=== PATIENT | male | born 1985 | race Caucasian/White ===

== ENCOUNTER 2019-09-27 05:20 | Inpatient (IN) | payer MEDICAID ==
[~2019-09-27] VITALS: Ht 167.6 cm; Wt 72.6 kg
[2019-09-27 05:27] VITALS: BP 141/81
[2019-09-27] MEDS ORDERED: NACL 0.9% 1,000 ML IV ONE (05:37)
[2019-09-27] MEDS ORDERED: ONDANSETRON 4 MG/2 ML VIAL IVP ONE (05:40)
[2019-09-27] MEDS ORDERED: KETOROLAC 30 MG/ML VIAL IVP ONE (05:40)
[2019-09-27] MEDS ORDERED: MORPHINE SULFATE 2 MG/ML SYR IVP ONE (05:45)
--- NOTE | 2019-09-27 05:45 | NUR ---
34 Y/O M BIBA C/O RT LOWER ABDOMINAL PAIN 04/05 X 0400. PER PT, PAIN STARTED SUDDENLY. PT DENIES RECENT INJURY/TRAUMA. ABD IS TENDER, AND GUARDING. PT DENIES PAINFUL URINATION, AND N/V/D. PMH: DENIES ALLERGIES: PCN
--- NOTE | 2019-09-27 06:00 | NUR ---
VERBAL ORDER RECEIVED BY DR. PECK FOR NS IVF TO BE RUN WIDE OPEN INSTEAD OF 100 CC/HR.
[2019-09-27 06:04] LABS: BASOPHILS # (AUTO) 0.1 K/uL (0.00-0.22); BASOPHILS % (AUTO) 0.6 % (0.0-2.0); EOSINOPHILS # (AUTO) 0.1 K/uL (0-0.4); EOSINOPHILS % (AUTO) 0.8 % (0.0-4.0); HEMATOCRIT 40.5 % (36-52); LYMPHOCYTES # (AUTO) 1.6 K/uL (2.0-11.5); LYMPHOCYTES % (AUTO) 15.4 % (20.5-51.1); MEAN CORPUSCULAR HEMOGLOBIN 24 pg (27-31); MEAN CORPUSCULAR HGB CONC 32 g/dL (33-37); MEAN CORPUSCULAR VOLUME 73.4 fL (80-94); MONOCYTES # (AUTO) 0.5 K/uL (0.8-1.0); MONOCYTES % (AUTO) 4.3 % (1.7-9.3); NEUTROPHILS # (AUTO) 8.4 K/uL (1.8-7.7); NEUTROPHILS % (AUTO) 78.9 % (42.2-75.2); PLATELET COUNT (AUTO) 213 K/uL (140-450); RED BLOOD CELL COUNT(AUTO) 5.52 MIL/uL (4.20-6.10); RED CELL DISTRIBUTION WIDTH 14.8 % (11.6-13.7); WHITE BLOOD COUNT (AUTO) 10.7 K/uL (4.8-10.8)
--- NOTE | 2019-09-27 06:05 | NUR ---
PT TRANSPORTED TO [facility]IA [facility].
[2019-09-27 06:17] LABS: ALBUMIN 3.6 g/dL (3.4-5.0); ANION GAP 16.3 (8-16); CARBON DIOXIDE 26.5 mmol/L (21-32); POTASSIUM 3.8 mmol/L (3.5-5.1); TOTAL BILIRUBIN 0.6 mg/dL (0.0-1.0)
--- NOTE | 2019-09-27 06:22 | NUR ---
PT BACK FROM [facility] VIA [facility].
--- NOTE | 2019-09-27 06:34 | NUR ---
PT STATES RT LOWER ABD PAIN HAS DECREASED TO 6/10
[2019-09-27 06:42] LABS: PROTHROMBIN TIME 9.6 secs (10.8-13.4)
--- NOTE | 2019-09-27 06:46 | NUR ---
URINE COLLECTED AND WALKED OVER TO LAB.
--- NOTE | 2019-09-27 07:19 | NUR ---
REPORT GIVEN TO AUBREY ROUSSEAU FOR CONTINUITY OF CARE.
--- NOTE | 2019-09-27 07:23 | NUR ---
RECEIVED REPORT FROM AUBREY PRABHAKAR.PT IN BED SITTING COMFORTABLY , AWAKE ,ALERT, AFIBRILE ,STABLE V/S.
[2019-09-27 07:24] LABS: BARBITURATE, URINE NEGATIVE ng/ml (NEG <=200); BENZODIAZEPINE, URINE NEGATIVE ng/mL (NEG <=200); CANNABINOID, URINE NEGATIVE ng/mL (NEG <=50); COCAINE, URINE NEGATIVE ng/mL (NEG <=300); OPIATE, URINE POSITIVE ng/mL (NEG <=2000); PHENCYCLIDINE SCREEN,URINE NEGATIVE ng/mL (NEG <=25)
[2019-09-27 07:28] LABS: ACETAMINOPHEN < 0.5 ug/ml (10-30); SALICYLATE < 2.8 mg/dL (2.8-20.0)
--- NOTE | 2019-09-27 08:01 | NUR ---
DR PELAEZ AT BEDSIDE REEVALUATING PT.
[2019-09-27] MEDS ORDERED: NACL 0.9% 1,000 ML IV SCH (08:07)
[2019-09-27] MEDS ORDERED: DOCUSATE SODIUM 100 MG GELCAP PO PRN (08:10)
[2019-09-27] MEDS ORDERED: MORPHINE SULFATE 2 MG/ML SYR IVP PRN ×3 (08:10→15:00)
[2019-09-27] MEDS ORDERED: ONDANSETRON 4 MG/2 ML VIAL IM/IVP PRN (08:10)
[2019-09-27] MEDS ORDERED: cefTRIAXone 2,000 MG in DEXTROSE 5% 100 ML IV SCH (08:20)
[2019-09-27 08:32] VITALS: BP 125/83
--- NOTE | 2019-09-27 08:32 | NUR ---
Patient will be admitted to care of DR CROCKER. Admited to med surg. Will go to room 106 a. Belongings list completed. Report to alfa vigil.
--- NOTE | 2019-09-27 08:32 | NUR ---
RECEIVED BEDSIDE REPORT FROM ED NURSE. PT RESTING IN BED. ABLE TO MAKE NEEDS KNOWN. RESPIRATIONS EVEN AND UNLABORED WITH NO SOB OR RESPIRATORY DISTRESS. SKIN WARM AND DRY TO TOUCH. IV SITE IN LAC 18G IS CLEAN, DRY, AND INTACT. MRSA SWAB COLLECTED. VITAL SIGNS: 125/83 BP, HR 76, 17 RR, 98% SPO2 ON RA, AND 97.7 IS TEMP. SAFETY MEASURES IN PLACE. WILL CONTINUE TO MONITOR.
[2019-09-27] MEDS ORDERED: LEVOFLOXACIN 750 MG/D5W PREMIX 150 ML IV ONE (08:50)
--- NOTE | 2019-09-27 08:50 | NUR ---
dr chacon notified pt is already in the floor when he ordered meds. Jolene vigil informed and aware.
[2019-09-27 08:51] LABS: FREE T4 (FREE THYROXINE) 1.01 ng/dL (0.76-1.46); MAGNESIUM 2.1 mg/dL (1.8-2.4); PHOSPHORUS 3.5 mg/dL (2.5-4.9); THYROID STIMULATING HORMONE 1.06 uIU/mL (0.34-3.74)
[2019-09-27] MEDS ORDERED: LORazepam 2 MG/ML VIAL IVP PRN (09:00)
[2019-09-27] MEDS ORDERED: LORazepam 1 MG TAB PO PRN (09:00)
--- NOTE | 2019-09-27 09:10 | NUR ---
INSTRUCTED PATIENT ON INCENTIVE SPIROMETER. PT UNDERSTANDS EXERCISE. INSTRUCTED PATIENT ON SPUTUM CULTURE, SPUTUM CUP LEFT AT BEDSIDE.
[2019-09-27] MEDS ORDERED: DEXT 5% /NACL 0.9% 1,000 ML IV SCH (09:20)
[2019-09-27] MEDS ORDERED: ALBUTEROL HFA MDI 90 MCG/ACTUATION 8 GM INH PRN (10:00)
[2019-09-27] MEDS: FOLIC ACID 1 MG TAB PO SCH (10:10)
[2019-09-27] MEDS: MULTIVITAMIN 1 TAB PO SCH (10:10)
[2019-09-27] MEDS: THIAMINE 100 MG TAB PO SCH (10:10)
[2019-09-27] MEDS: PANTOPRAZOLE 40 MG INJ VIAL IVP SCH (10:29)
--- NOTE | 2019-09-27 10:29 | NUR ---
ADMINISTERED SCHED MED PRESCRIBED PER MD ORDER. PT TOLERATED WELL. MEDICATION EDUCATION PERFORMED. PT VERBALIZED UNDERSTANDING. SAFETY MEASURES IN PLACE. WILL CONTINUE TO MONITOR
--- NOTE | 2019-09-27 11:41 | NUR ---
DC PLANNIN YRS OLD MALE PATIENT WAS ADMITTED FROM HOME WITH A DX OF PARTIAL BOWEL OBSTRUCTION. PT HAS NO MEDICAL HISTORY. CT ABDOMEN SHOWED A SINGLE PROMINENT SMALL BOWEL LOOP IN THE LEFT UPPER QUADRANT WITH AN AIR FLUID , MULTIPLE SMALL HEPATIC HYPERDENSITIES , SMALL RIGHT PLEURAL EFFUSION RT BIBASILAR CONSOLIDATION AND ATELECTASIS. NGT INSERTED ,ADMINISTERED IVF, IV ZOSYN . BLOOD AND SPUTUM CULTURE PENDING. SURGICAL CONSULT WITH DR CARRASQUILLO. DC PLAN TO GO HOME WHEN STABLE. CM TO FOLLOW. Addendum: 09/29/19 at 1635 by Yani Hayden CM DC PLANNING: SEEN BY PULMO DR OG RECOMMENDED PERSISTENT FEVER DUE TO PNA AND CONTINUE IV ABX ZOSYN . DR CARRASQUILLO SURGEON RECOMMENDATION WERE NO EVIDENCED OF SURGICAL NEEDS AT THIS TIME AND ADVANCED TO LIQUID DIET. DC PLAN TO GO HOME WHEN STABLE. CM TO FOLLOW
[2019-09-27] MEDS: NACL 0.9% 1,000 ML IV SCH ×2 (12:56→23:27)
[2019-09-27] MEDS: PIPERACILLIN/TAZOBACTAM 3.375 GM in DEXTROSE 5% 50 ML IV SCH ×3 (12:58→23:27)
--- NOTE | 2019-09-27 13:05 | NUR ---
ADMINISTERED SCHED MED PRESCRIBED PER MD ORDER. PT TOLERATED WELL. MEDICATION EDUCATION PERFORMED. PT VERBALIZED UNDERSTANDING. SAFETY MEASURES IN PLACE. WILL CONTINUE TO MONITOR
[2019-09-27] MEDS: ACETAMINOPHEN 325 MG TAB PO PRN (14:56)
--- NOTE | 2019-09-27 14:56 | NUR ---
PATIENT COMPLAINED OF PAIN AND FEELING COLD. UPON ASSESSING, PT HAS FEVER OF 101.9 TAKEN TEMPORALLY. WHEN TEMP TAKEN ORALLY, PT HAS A TEMP OF 102.9. PRN TYLENOL ADMINISTERED PRESCRIBED PER MD ORDER. RESIDENT AND CHARGE AWARE. SAFETY MEASURES IN PLACE. WILL CONTINUE TO MONITOR
[2019-09-27 16:00] VITALS: BP 116/68
--- NOTE | 2019-09-27 16:05 | NUR ---
HOURLY ROUNDING. PT ASLEEP IN BED. RESPONSIVE TO VERBAL AND TACTILE STIMULI. ABLE TO MAKE NEEDS KNOWN. RESPIRATIONS EVEN AND UNLABORED WITH NO SOB OR RESPIRATORY DISTRESS. SKIN WARM AND DRY TO TOUCH. SAFETY MEASURES IN PLACE. WILL CONTINUE TO MONITOR.
--- NOTE | 2019-09-27 18:02 | NUR ---
ADMINISTERED SCHED MED PRESCRIBED PER MD ORDER. PT TOLERATED WELL. MEDICATION EDUCATION PERFORMED. PT VERBALIZED UNDERSTANDING. SAFETY MEASURES IN PLACE. WILL CONTINUE TO MONITOR
--- NOTE | 2019-09-27 19:10 | NUR ---
RECEIVED REPORT FROM ARTI BURGOS DAYSHIFT NURSE AT BEDSIDE FOR CONTINUITY OF CARE, PT IN STABLE CONDITION.
--- NOTE | 2019-09-27 19:10 | NUR ---
ENDORSED AT BEDSIDE TO NIGHTSHIFT NURSE. PT IS STABLE
--- NOTE | 2019-09-27 20:30 | NUR ---
PT IN BED AOX4 PRIMARY SERBIAN SPEAKING WITH LAC 18G INTACT AND ASYMPTOMATIC. PT RUNNING NORMAL SALINE AT 100MLS/HR. [employer] BUS OPERATOR SYSTEM USED TO TRANSLATE WITH MOVIE STUNT PERFORMER JENNIFERL . TEACHING PROVIDED REGARDING PT DIAGNOSIS WELL TRANSLATING PT MEDICATIONS AND SIDE EFFECTS. PT ALSO EDUCATED AND ENCOURAGED USE OF INCENTIVE SPIROMETER. LUNG SOUNDS DIMINISHED. THROUGH MOVIE STUNT PERFORMER PT SAID HE HAD 7/10 STABBING SEVERE PAIN IN ABDOMEN.PT WAS GIVEN MORPHINE IVP AND ASSISTED TO TOILET AND BACK. ALL UNIVERSAL PRECAUTIONS IN PLACE AND V/S FOLLOWS: T 99.7 P 99 R 18 B/P 141/85 02 94% ON ROOM AIR.
--- NOTE | 2019-09-27 22:00 | NUR ---
SISTER BERYL CALLED , PT GAVE VERBAL CONSENT TO ALLOW SISTER TO KNOW INFORMATION REGARDING HIS MEDICAL ISSUES, PT ALSO SPOKE WITH SISTER DIRECTLY.
[2019-09-27] MEDS: HYDROcodone/APAP 5/325 MG 1 TAB TAB PO PRN (23:33)
--- NOTE | 2019-09-27 23:35 | NUR ---
PT C/O OF MODERATE PAIN AND WAS GIVEN PO NORCO PRN . ALL UNIVERSAL PRECAUTIONS IN PLACE. ALL REQUESTED NEEDS ATTENDED BY STAFF.
[2019-09-28] VITALS: BP 126/71
--- NOTE | 2019-09-28 00:45 | NUR ---
PT GIVEN IVP ZOSYN EDUCATION REGARDING PT MEDICATION EXPLAINED AT BEDSIDE. NO ADVERSE EFFECTS OF IV ABT. V/S FOLLOWS; T 100.4 P 94 R 20 B/P 126/71 02 99% ON ROOM AIR. WILL MEDICATE FOR INCREASED TEMPERATURE. ALL UNIVERSAL PRECAUTIONS IN PLACE.
[2019-09-28] MEDS: ACETAMINOPHEN 325 MG TAB PO PRN (01:15)
--- NOTE | 2019-09-28 01:15 | NUR ---
COOLING MEASURES OF ICE PACKS AND TYLENOL PROVIDED TO PT TO MAKE TEMPERATURE GO DOWN. WILL CONTINUE TO MONITOR PT.
--- NOTE | 2019-09-28 04:00 | NUR ---
URINE COLLECT FOR UA AND SENT TO LAB.
[2019-09-28 04:17] LABS: APPEARANCE,URINE CLEAR (CLEAR); BILIRUBIN,URINE NEGATIVE (NEGATIVE); BLOOD, URINE NEGATIVE (NEGATIVE); COLOR,URINE YELLOW (YELLOW); LEUKOCYTE ESTERASE ,URINE NEGATIVE (NEGATIVE); NITRITE, URINE NEGATIVE (NEGATIVE); PH,URINE 6.5 (5.0-9.0); UGLUCOSE NEGATIVE (NEGATIVE)
[2019-09-28] MEDS: PIPERACILLIN/TAZOBACTAM 3.375 GM in DEXTROSE 5% 50 ML IV SCH ×3 (05:45→18:09)
--- NOTE | 2019-09-28 05:50 | NUR ---
PT GIVEN ORDERED ZOSYN, EDUCATION REGARDING MEDICATION PROVIDED AT BEDSIDE, PT VERBALIZED UNDERSTANDING.
[2019-09-28 06:51] LABS: CHOL/HDL RATIO 2.6 (1-4.5)
--- NOTE | 2019-09-28 07:38 | NUR ---
RECEIVED PT FROM GUM DIPPER FOR CONTINUITY OF CARE. PT IN STABLE CONDITION. DISCUSSED POC WITH PT. PT VERBALZIED UNDERSTANDING. BOARD UPDATED. WILL ROUND FREQUENTLY THROUGHOUT THE SHIFT.
[2019-09-28 08:00] VITALS: BP 114/54
[2019-09-28] MEDS: PANTOPRAZOLE 40 MG INJ VIAL IVP SCH (08:46)
[2019-09-28] MEDS: MULTIVITAMIN 1 TAB PO SCH (08:47)
[2019-09-28] MEDS: THIAMINE 100 MG TAB PO SCH (08:47)
[2019-09-28] MEDS: NACL 0.9% 1,000 ML IV SCH ×2 (08:47→17:06)
[2019-09-28] MEDS: FOLIC ACID 1 MG TAB PO SCH (08:47)
[2019-09-28] MEDS: SUCRALFATE 1 GM TAB PO SCH ×4 (08:47→20:38)
--- NOTE | 2019-09-28 08:50 | NUR ---
PATIENT HAS BEEN SCREENED AND CATEGORIZED MODERATE NUTRITION RISK. PATIENT WILL BE SEEN WITHIN 3-5 DAYS OF ADMISSION. 09/29/19 10/01/[address]
--- NOTE | 2019-09-28 09:22 | NUR ---
Folder Inspector Note: SW attempted to reach family members to complete assessment but line was disconnected. SW met with patient to complete assessment but patient refused. No further needs identified.
--- NOTE | 2019-09-28 09:38 | NUR ---
ADMIN MORNIGN MEDS. PT TOLERATED WELL. ALL OTHER NEEDS MET
--- NOTE | 2019-09-28 11:21 | NUR ---
PT RESTING IN BED. ALL NEEDS MET.
--- NOTE | 2019-09-28 13:37 | NUR ---
PT ASLEEP. WILL ROUND FREQUENTLY
[2019-09-28] MEDS ORDERED: DOCUSATE SODIUM 100 MG GELCAP PO SCH (14:00)
[2019-09-28] MEDS ORDERED: SENNA 8.6 MG TAB PO SCH (14:15)
--- NOTE | 2019-09-28 15:18 | NUR ---
PT ASLEEP. ALL NEEDS MET.
[2019-09-28 16:00] VITALS: BP 116/70
--- NOTE | 2019-09-28 17:34 | NUR ---
PT EATING DINNER. ALL NEEDS MET. WILL CONTINUE TO ROUND ON PT.
--- NOTE | 2019-09-28 19:38 | NUR ---
ENDORSED PT TO MANAGER APPLICATION DEVELOPMENT FOR CONTINUITY OF CARE. PT IN STABLE CONDITION.
--- NOTE | 2019-09-28 19:40 | NUR ---
RECEIVED REPORT FROM LATRICE BURGOS DAY SHIFT NURSE, PT IN STABLE CONDITION. HE IS AOX4 IN BED WITH IV SITE 20G ON LEFT AC INTACT AND RUINING NORMAL SALINE [id number]. HE HAS NO C/O VOICED AT THIS TIME AND ALL UNIVERSAL PRECAUTIONS IN PLACE.
--- NOTE | 2019-09-28 21:00 | NUR ---
PT IN BED NORMAL SALINE WAS INCREASED TO 120MLS/HR, NEW FLUID BAG HUNG. PT GIVEN ORDERED CARAFATE EDUCATION REGARDING MEDICATION PROVIDED AT BEDSIDE, PT ACKNOWLEDGED UNDERSTANDING. PT ALSO GIVEN PRN COLACE FOR CONSTIPATION. PT WAS ASKED IF HE WANTS THE DOCTOR TO ORDER A SUPPOSITORY TO HELP HIM HAVE A BM, HE SAID HE WOULD THINK ABOUT IT, BUT WOULD GIVEN THE ORAL MEDS A TRY. V/S FOLLOWS: T 99.2 P 106 R 18 B/P 131/76 02 96% ON ROOM AIR.
[2019-09-29] VITALS: BP 107/62
[2019-09-29] MEDS: ACETAMINOPHEN 325 MG TAB PO PRN ×3 (00:20→20:10)
[2019-09-29] MEDS: PIPERACILLIN/TAZOBACTAM 3.375 GM in DEXTROSE 5% 50 ML IV SCH ×5 (00:26→23:45)
--- NOTE | 2019-09-29 01:00 | NUR ---
PT MIDNIGHT TEMP WAS 101.6, HE WAS GIVEN PO/PRN TYLENOL 650MG WELL S COOLING MEASURES.V/S FOLLOWS: T P 107 R 18 B/P 107/62 02 94% ON ROOM AIR. ZOSYN HUNG AND RUNNING AT 100MLS/HR. ALL REQUESTED NEEDS ATTENDED BY STAFF.
[2019-09-29] MEDS: NACL 0.9% 1,000 ML IV SCH ×4 (01:26→22:59)
--- NOTE | 2019-09-29 06:00 | NUR ---
RETAKE OF TEMP IS 99.0. ZOSYN HUNG WELL. PT AMBULATE TO BATHROOM WITH STAND BY ASSISTANCE AND WAS ABLE TO HAVE A BM.
--- NOTE | 2019-09-29 07:00 | NUR ---
RECEIVED REPORT FROM CSR TECHNICIAN NURSE FLORINDA-AUBREY. PT AOX4, RESTING IN BED. DISCUSSED PLAN OF CARE AND PT VERBALIZED UNDERSTANDING. IV SITE LEFT AC #20 RUNNING NS @120ML.HR. LUNG SOUNDS DIMINISHED. NO S/S OF RESPIRATORY DISTRESS OR DISCOMFORT NOTED AT THIS TIME. WILL CONTINUE TO MONITOR.
[2019-09-29 08:00] VITALS: BP 130/71
[2019-09-29] MEDS: FOLIC ACID 1 MG TAB PO SCH (08:12)
[2019-09-29] MEDS: PANTOPRAZOLE 40 MG INJ VIAL IVP SCH (08:12)
[2019-09-29] MEDS: SUCRALFATE 1 GM TAB PO SCH ×4 (08:12→20:10)
[2019-09-29] MEDS: DOCUSATE SODIUM 100 MG GELCAP PO SCH (08:13)
[2019-09-29] MEDS: THIAMINE 100 MG TAB PO SCH (08:13)
[2019-09-29] MEDS: MULTIVITAMIN 1 TAB PO SCH (08:13)
--- NOTE | 2019-09-29 08:13 | NUR ---
SCHEDULED MEDICATIONS GIVEN AND TOLERATED WELL. NO S/S OF RESPIRATORY DISTRESS OR DISCOMFORT NOTED AT THIS TIME. WILL CONTINUE TO MONITOR.
[2019-09-29] MEDS: SENNA 8.6 MG TAB PO SCH (08:14)
[2019-09-29 09:13] LABS: BASOPHILS % (AUTO) 0.4 % (0.0-2.0); EOSINOPHILS % (AUTO) 0.2 % (0.0-4.0); HEMATOCRIT 38.1 % (36-52); HEMOGLOBIN 12.2 g/dL (12.0-18.0); LYMPHOCYTES # (AUTO) 0.7 K/uL (2.0-11.5); LYMPHOCYTES % (AUTO) 6.4 % (20.5-51.1); MEAN CORPUSCULAR HEMOGLOBIN 24 pg (27-31); MEAN CORPUSCULAR HGB CONC 32 g/dL (33-37); MEAN CORPUSCULAR VOLUME 73.5 fL (80-94); MONOCYTES # (AUTO) 0.8 K/uL (0.8-1.0); MONOCYTES % (AUTO) 6.6 % (1.7-9.3); NEUTROPHILS % (AUTO) 86.4 % (42.2-75.2); PLATELET COUNT (AUTO) 217 K/uL (140-450); RED BLOOD CELL COUNT(AUTO) 5.19 MIL/uL (4.20-6.10); RED CELL DISTRIBUTION WIDTH 14.5 % (11.6-13.7); WHITE BLOOD COUNT (AUTO) 11.6 K/uL (4.8-10.8)
[2019-09-29 09:53] LABS: ANION GAP 12.1 (8-16); CARBON DIOXIDE 27.3 mmol/L (21-32); CREATININE 0.9 mg/dL (0.6-1.3); POTASSIUM 3.4 mmol/L (3.5-5.1)
--- NOTE | 2019-09-29 10:57 | NUR ---
TEMP. 101.7- TYLENOL GIVEN AND TOLERATED WELL. PT IS AWARE ON NPO ORDERS. CONSENT FOR CT ABD/PELVIS W/ CONTRAST SIGNED. NO S/S OF RESPIRATORY DISTRESS OR DISCOMFORT NOTED AT THIS TIME. WILL CONTINUE TO MONITOR.
--- NOTE | 2019-09-29 11:32 | NUR ---
SCHEDULED MEDICATION ZOSYN GIVEN AND TOLERATED WELL. NO S/S OF RESPIRATORY DISTRESS OR DISCOMFORT NOTED AT THIS TIME. WILL CONTINUE TO MONITOR.
--- NOTE | 2019-09-29 12:00 | NUR ---
PT AWARE TO DRINK WATER WITH IODINE FOR CT WITH CONTRAST. PT VERBALIZED UNDERSTANDING.
--- NOTE | 2019-09-29 12:25 | NUR ---
SCHEDULED MEDICATION CARAFATE AND KCL GIVEN AND TOLERATED WELL. NO S/S OF RESPIRATORY DISTRESS OR DISCOMFORT NOTED AT THIS TIME. WILL CONTINUE TO MONITOR.
[2019-09-29] MEDS ORDERED: POTASSIUM CHLORIDE 40 MEQ, LIDOCAINE MPF 1% 25 MG in NACL 0.9% 250 ML IV SCH (13:00)
--- NOTE | 2019-09-29 14:00 | NUR ---
PT TAKEN BY TECH FOR CT ABD/PELVIS W/CONTRAST VIA WHEELCHAIR.
--- NOTE | 2019-09-29 14:54 | NUR ---
PT HAS RETURNED BACK TO HIS ROOM. CURRENTLY USING THE RESTROOM. NO S/S OF RESPIRATORY DISTRESS OR DISCOMFORT NOTED AT THIS TIME. WILL CONTINUE TO MONITOR.
[2019-09-29 16:00] VITALS: BP 121/72
--- NOTE | 2019-09-29 17:01 | NUR ---
SCHEDULED MEDICATION CARAFATE GIVEN AND TOLERATED WELL. NO S/S OF RESPIRATORY DISTRESS OR DISCOMFORT NOTED AT THIS TIME. WILL CONTINUE TO MONITOR.
--- NOTE | 2019-09-29 18:23 | NUR ---
SCHEDULED MEDICATION ZOSYN GIVEN AND TOLERATED WELL. NO S/S OF RESPIRATORY DISTRESS OR DISCOMFORT NOTED AT THIS TIME. WILL CONTINUE TO MONITOR.
--- NOTE | 2019-09-29 19:10 | NUR ---
RECEIVED REPORT FROM [facility] NURSE. PLAN OF CARE DISCUSSED. PATIENT IN BED. AOX4. RESPIRATIONS EVEN AND UNLABORED. SKIN IS WARM AND DRY. IVF INFUSING WELL. DENIES ANY PAIN OR DISCOMFORT AT THIS TIME. WILL CONTINUE TO MONITOR.
--- NOTE | 2019-09-29 20:10 | NUR ---
ROUNDS MADE. PATIENT IN BED RESTING. TEMP 103.5. TYLENOL GIVEN. SCHEDULED MEDS GIVEN WELL. DENIES ANY PAIN OR DISCOMFORT AT THIS TIME. WILL CONTINUE TO MONITOR.
--- NOTE | 2019-09-29 22:00 | NUR ---
REASSESSED TEMP 99.0. DENIES PAIN OR DISCOMFORT. WILL CONTINUE TO MONITOR.
[2019-09-30] VITALS: BP 125/76
--- NOTE | 2019-09-30 00:03 | NUR ---
ROUNDS MADE. PATIENT IN BED RESTING. VITAL SIGNS STABLE. AFEBRILE. DENIES ANY PAIN OR DISCOMFORT AT THIS TIME. IVF INFUSING WELL. PATIENT KEPT COMFORTABLE. WILL CONTINUE TO MONITOR.
--- NOTE | 2019-09-30 02:09 | NUR ---
PATIENT IN BED. WATCHING TV. IVF INFUSING WELL. DENIES ANY PAIN OR DISCOMFORT. NO REQUESTS MADE AT THIS TIME. KEPT COMFORTABLE. CALL LIGHT WITHIN REACH. WILL CONTINUE TO MONITOR.
--- NOTE | 2019-09-30 03:58 | NUR ---
ROUNDS DONE. PATIENT IN BED SLEEPING. RESPIRATIONS EVEN AND UNLABORED. NO SIGNS OF DISTRESS NOTED. IVF INFUSING WELL. SAFETY MEASURES IN PLACE. WILL CONTINUE TO MONITOR.
[2019-09-30] MEDS: PIPERACILLIN/TAZOBACTAM 3.375 GM in DEXTROSE 5% 50 ML IV SCH ×4 (05:09→23:59)
--- NOTE | 2019-09-30 05:11 | NUR ---
PATIENT IN BED RESTING. HOB SLIGHTLY ELEVATED. IV INFUSING WELL. PATIENT DENIES ANY PAIN OR DISCOMFORT AT THIS TIME. SCHEDULED MEDS GIVEN ORDERED. SAFETY MEASURES IN PLACE. WILL CONTINUE TO MONITOR.
[2019-09-30] MEDS ORDERED: AZITHROMYCIN 500 MG INJ VIAL IV ONE (06:53)
[2019-09-30] MEDS: AZITHROMYCIN 500 MG in DEXTROSE 5% 250 ML IV SCH (06:55)
--- NOTE | 2019-09-30 07:07 | NUR ---
ENDORSED TO DAY SHIFT NURSE. PATIENT IN STABLE CONDITION.
--- NOTE | 2019-09-30 07:08 | NUR ---
RECEIVED REPORT FROM MILITARY LAWYER NURSE. AOX4, NO C/O PAIN, NO SOB. WITH IV SITE 20G ON LEFT AC INTACT AND INFUSING WELL NS [id number]. UNIVERSAL PRECAUTIONS IN PLACE. PT IN STABLE CONDITION
[2019-09-30 07:24] LABS: BASOPHILS # (AUTO) 0.1 K/uL (0.00-0.22); BASOPHILS % (AUTO) 0.5 % (0.0-2.0); EOSINOPHILS % (AUTO) 0.2 % (0.0-4.0); HEMOGLOBIN 10.9 g/dL (12.0-18.0); LYMPHOCYTES # (AUTO) 1.2 K/uL (2.0-11.5); LYMPHOCYTES % (AUTO) 11.2 % (20.5-51.1); MEAN CORPUSCULAR HEMOGLOBIN 24 pg (27-31); MEAN CORPUSCULAR HGB CONC 32 g/dL (33-37); MEAN CORPUSCULAR VOLUME 73.6 fL (80-94); MONOCYTES # (AUTO) 0.7 K/uL (0.8-1.0); MONOCYTES % (AUTO) 6.6 % (1.7-9.3); NEUTROPHILS # (AUTO) 9.1 K/uL (1.8-7.7); NEUTROPHILS % (AUTO) 81.5 % (42.2-75.2); PLATELET COUNT (AUTO) 240 K/uL (140-450); RED BLOOD CELL COUNT(AUTO) 4.62 MIL/uL (4.20-6.10); RED CELL DISTRIBUTION WIDTH 14.6 % (11.6-13.7); WHITE BLOOD COUNT (AUTO) 11.2 K/uL (4.8-10.8)
[2019-09-30 07:40] LABS: ANION GAP 15.1 (8-16); CREATININE 0.8 mg/dL (0.6-1.3); MAGNESIUM 1.7 mg/dL (1.8-2.4); PHOSPHORUS 2.5 mg/dL (2.5-4.9); POTASSIUM 3.1 mmol/L (3.5-5.1)
[2019-09-30 08:00] VITALS: BP 128/72
--- NOTE | 2019-09-30 09:10 | NUR ---
DUE MEDS GIVEN. TOLERATED WELL. IN STABLE CONDITION
[2019-09-30] MEDS: PANTOPRAZOLE 40 MG INJ VIAL IVP SCH (09:15)
[2019-09-30] MEDS: DOCUSATE SODIUM 100 MG GELCAP PO SCH (09:15)
[2019-09-30] MEDS: SUCRALFATE 1 GM TAB PO SCH ×4 (09:15→20:06)
[2019-09-30] MEDS: MULTIVITAMIN 1 TAB PO SCH (09:16)
[2019-09-30] MEDS: FOLIC ACID 1 MG TAB PO SCH (09:16)
[2019-09-30] MEDS: SENNA 8.6 MG TAB PO SCH (09:16)
[2019-09-30] MEDS: THIAMINE 100 MG TAB PO SCH (09:16)
[2019-09-30] MEDS: NACL 0.9% 1,000 ML IV SCH ×2 (10:57→19:06)
--- NOTE | 2019-09-30 10:57 | NUR ---
IVF BAG REPLACED. INFUSING WELL. IV INTACT AND PATENT. PT AWAKE IN BED AND WATCHING TV.
[2019-09-30] MEDS ORDERED: ALBUTEROL SULFATE/IPRATROPIU 3 ML SOL IH PRN (11:35)
[2019-09-30] MEDS: ACETAMINOPHEN 325 MG TAB PO PRN ×2 (12:09→18:22)
--- NOTE | 2019-09-30 12:10 | NUR ---
WITH C/O OF "FEELING HOT". ORAL TEMP 100.4. ACETAMINOPHEN 650 MG PRN GIVEN ORDERED. COOLING MEASURES RENDERED. INSTRUCTED PT TO INCREASE PO FLUID INTAKE TOLERATED. WILL RECHECK IN 1 HR.
--- NOTE | 2019-09-30 13:24 | NUR ---
CURRENT TEMP AT 99.6. PT STATED FEELING BETTER. WILL CONT TO MONITOR
[2019-09-30] MEDS: ALBUTEROL SULFATE/IPRATROPIU 3 ML SOL IH SCH ×2 (13:41→19:52)
[2019-09-30] MEDS ORDERED: MAG SULF 2000 MG/WATER PREMIX 50 ML IV SCH (15:00)
--- NOTE | 2019-09-30 15:20 | NUR ---
TEMP 98.8. IN BED WATCHING TV. NO C/O PAIN, NO SOB.
[2019-09-30 16:00] VITALS: BP 118/63
[2019-09-30] MEDS ORDERED: POTASSIUM CHLORIDE 40 MEQ, LIDOCAINE MPF 1% 25 MG in NACL 0.9% 250 ML IV SCH (16:00)
--- NOTE | 2019-09-30 18:23 | NUR ---
WITH C/O OF FEELING WARM. ORAL TEMP 100.4. ACETAMINOPHEN 650 MG PRN GIVEN ORDERED. COOLING MEASURES RENDERED. INSTRUCTED PT TO INCREASE PO FLUID INTAKE TOLERATED. WILL RECHECK IN 1 HR
--- NOTE | 2019-09-30 19:00 | NUR ---
WITH TEMP OF 99.6. CONTINUE COOLING MEASURES. ENDORSED TO IT APPLICATIONS MANAGER NURSE FOR CONTINUITY OF CARE. IN STABLE CONDITION
--- NOTE | 2019-09-30 19:02 | NUR ---
RECEIVED REPORT FROM DAY SHIFT NURSE. PATIENT IN BED RESTING. PATIENT IN STABLE CONDITION. IVF INFUSING WELL. DENIES ANY PAIN OR DISCOMFORT. PLAN OF CARE DISCUSSED. WILL CONTINUE TO MONITOR.
--- NOTE | 2019-09-30 20:09 | NUR ---
ROUNDS MADE. PATIENT IN BED RESTING. SCHEDULED MEDICATION GIVEN ORDERED. NO COMPLAINTS MADE AT THIS TIME. TEMP 98.7. WILL CONTINUE TO MONITOR.
--- NOTE | 2019-09-30 21:56 | NUR ---
PATIENT IN BED RESTING. DENIES ANY PAIN OR DISCOMFORT AT THIS TIME. RESPIRATIONS EVEN AND UNLABORED. IVF INFUSING WELL. PATIENT KEPT COMFORTABLE. CALL LIGHT WITHIN REACH. WILL CONTINUE TO MONITOR.
[2019-10-01] VITALS: BP 115/67
--- NOTE | 2019-10-01 00:03 | NUR ---
PATIENT IN BED RESTING. ON SEMI-FOWLERS POSITION. VITAL SIGNS STABLE. AFEBRILE. DENIES ANY PAIN OR DISCOMFORT. SCHEDULED MEDS GIVEN. IVF INFUSING WELL. SAFETY MEASURES IN PLACE. PATIENT KEPT COMFORTABLE. WILL CONTINUE TO MONITOR.
--- NOTE | 2019-10-01 02:05 | NUR ---
ROUNDS DONE. PATIENT IN BED SLEEPING WITH HOB ELEVATED. NO SIGNS AND SYMPTOMS OF PAIN OR DISTRESS NOTED. IVF INFUSING WELL. SAFETY MEASURES IN PLACE. WILL CONTINUE TO MONITOR.
[2019-10-01] MEDS: NACL 0.9% 1,000 ML IV SCH ×2 (03:36→11:46)
[2019-10-01] MEDS: HYDROcodone/APAP 5/325 MG 1 TAB TAB PO PRN (03:44)
--- NOTE | 2019-10-01 03:44 | NUR ---
PATIENT IN BED WITH HOB ELEVATED. COMPLAINTS OF RIGHT UPPER BACK PAIN 12/04. PRN PAIN MEDICATION GIVEN ORDERED. TEMP 99.4. WILL CONTINUE TO MONITOR.
[2019-10-01] MEDS: PIPERACILLIN/TAZOBACTAM 3.375 GM in DEXTROSE 5% 50 ML IV SCH ×2 (05:13→11:13)
--- NOTE | 2019-10-01 05:18 | NUR ---
SCHEDULED MEDS GIVEN. PATIENT VERBALIZED NO DISCOMFORT AT THIS TIME. RESPIRATIONS EVEN AND UNLABORED. TEMP 98.7. SAFETY MEASURES IN PLACE. PATIENT KEPT COMFORTABLE. WILL CONTINUE TO MONITOR.
[2019-10-01] MEDS: AZITHROMYCIN 500 MG in DEXTROSE 5% 250 ML IV SCH (06:03)
[2019-10-01 06:43] LABS: ANION GAP 12.5 (8-16); CREATININE 0.8 mg/dL (0.6-1.3); POTASSIUM 3.5 mmol/L (3.5-5.1)
[2019-10-01 06:52] LABS: MAGNESIUM 2.3 mg/dL (1.8-2.4); PHOSPHORUS 3.2 mg/dL (2.5-4.9)
[2019-10-01 06:57] LABS: BASOPHILS % (AUTO) 0.3 % (0.0-2.0); EOSINOPHILS % (AUTO) 0.3 % (0.0-4.0); HEMATOCRIT 32.9 % (36-52); HEMOGLOBIN 10.5 g/dL (12.0-18.0); LYMPHOCYTES % (AUTO) 12.8 % (20.5-51.1); MEAN CORPUSCULAR HEMOGLOBIN 23 pg (27-31); MEAN CORPUSCULAR HGB CONC 32 g/dL (33-37); MEAN CORPUSCULAR VOLUME 73.5 fL (80-94); MONOCYTES # (AUTO) 0.7 K/uL (0.8-1.0); MONOCYTES % (AUTO) 9.1 % (1.7-9.3); NEUTROPHILS # (AUTO) 6.2 K/uL (1.8-7.7); NEUTROPHILS % (AUTO) 77.5 % (42.2-75.2); PLATELET COUNT (AUTO) 283 K/uL (140-450); RED BLOOD CELL COUNT(AUTO) 4.48 MIL/uL (4.20-6.10); RED CELL DISTRIBUTION WIDTH 14.2 % (11.6-13.7); WHITE BLOOD COUNT (AUTO) 7.9 K/uL (4.8-10.8)
--- NOTE | 2019-10-01 07:08 | NUR ---
ENDORSED TO DAY SHIFT NURSE. PATIENT IN STABLE CONDITION.
--- NOTE | 2019-10-01 07:09 | NUR ---
RECEIVED PATIENT FROM TRANSPORTATION CLERK NURSE. PATIENT IS AAOX4. RESPIRATIONS EVEN AND UNLABORED, ROOM AIR. NO SIGNS OF DISTRESS NOTED. VISIBLE CHEST RISE AND FALL NOTED. ON TELE MONITORING. ABDOMEN SOFT, FLAT, AND NONTENDER. PATIENT SKIN WARM, DRY, AND INTACT. IV IN THE LEFT AC GAUGE 18 RUNNING NS AT 120 ML/HR. IV INTACT AND PATENT. FLUSHING WELL. NO SIGNS OF INFILTRATION NOTED. PATIENT IS AMBULATORY. UNIVERSAL FALL PRECAUTIONS. ON A SOFT DIET. HAS SCHEDULED ULTRASOUND-GUIDED THORACENTESIS. CONSENT SIGNED. BED IN LOW POSITION. CALL LIGHT IS WITHIN REACH. WILL CONTINUE TO MONITOR.
[2019-10-01] MEDS: ALBUTEROL SULFATE/IPRATROPIU 3 ML SOL IH SCH ×2 (07:25→14:15)
[2019-10-01 07:57] LABS: PROTHROMBIN TIME 9.7 secs (10.8-13.4)
--- NOTE | 2019-10-01 08:00 | NUR ---
DR. CROCKER AND THE RESIDENT DOCTORS MADE ROUNDS.
[2019-10-01] MEDS: FOLIC ACID 1 MG TAB PO SCH (08:14)
[2019-10-01] MEDS: MULTIVITAMIN 1 TAB PO SCH (08:14)
[2019-10-01] MEDS: THIAMINE 100 MG TAB PO SCH (08:15)
[2019-10-01] MEDS: PANTOPRAZOLE 40 MG INJ VIAL IVP SCH (08:16)
[2019-10-01] MEDS: SUCRALFATE 1 GM TAB PO SCH ×2 (08:16→12:45)
[2019-10-01] MEDS: SENNA 8.6 MG TAB PO SCH (08:19)
[2019-10-01] MEDS: DOCUSATE SODIUM 100 MG GELCAP PO SCH (08:19)
--- NOTE | 2019-10-01 08:20 | NUR ---
GIVEN MORNING MEDICATIONS PO. HELD SENNA AND COLACE BECAUSE PATIENT HAS DIARRHEA, 3 BM. EXPLAINED MEDICATIONS. PATIENT VERBALIZED UNDERSTANDING. BED IN LOW POSITION. CALL LIGHT IS WITHIN REACH. WILL CONTINUE TO MONITOR.
[2019-10-01] MEDS ORDERED: LACTOBACILLUS RHAMNOSUS GG 1 EACH CAP PO SCH (09:00)
--- NOTE | 2019-10-01 11:16 | NUR ---
HANG ZOSYN VIA IVPB. EXPLAINED MEDICATION. WILL CONTINUE TO MONITOR
--- NOTE | 2019-10-01 12:00 | NUR ---
DR. GUERRERO AND ROSALIA AT BEDSIDE FOR THORACENTESIS. TIME OUT PROCEDURE IS COMPLETED.
--- NOTE | 2019-10-01 12:15 | NUR ---
125 ML OUTPUT FROM THORACENTESIS. PATIENT IS IN STABLE CONDITION
--- NOTE | 2019-10-01 12:45 | NUR ---
GIVEN CARAFATE PO. EXPLAINED MEDICATION. PATIENT VERBALIZED UNDERSTANDING. BED IN LOW POSITION. CALL LIGHT IS WITHIN REACH. WILL CONTINUE TO MONITOR
[2019-10-01] MEDS: ACETAMINOPHEN 325 MG TAB PO PRN (12:48)
--- NOTE | 2019-10-01 12:48 | NUR ---
GIVEN TYLENOL FOR HEADACHE 08/06, PO. EXPLAINED MEDICATION. PATIENT VERBALIZED UNDERSTANDING. BED IN LOW POSITION. CALL LIGHT IS WITHIN REACH. WILL CONTINUE TO MONITOR
[2019-10-01] MEDS ORDERED: AMOX-999 PO (13:09)
[2019-10-01] MEDS ORDERED: LACT-81 PO (13:11)
[2019-10-01 13:15] VITALS: BP 113/78
--- NOTE | 2019-10-01 13:24 | NUR ---
SENT LAB SPECIMEN FROM THORACENTESIS TO THE LAB.
--- NOTE | 2019-10-01 13:25 | NUR ---
AWAKE AND ALERT NO SOB NOTED PATIENT WITH LUNCH TRAY REQUEST HHN THERAPY AT A LATER TIME 20 MINS
--- NOTE | 2019-10-01 13:48 | NUR ---
PAIN REASSESSED. PATIENT DENIES PAIN. WILL CONTINUE TO MONITOR
--- NOTE | 2019-10-01 14:03 | NUR ---
GIVEN 2 APPLE JUICE BOXES REQUESTED BY THE PATIENT.
[2019-10-01] MEDS ORDERED: FAMO-90 PO (14:07)
[2019-10-01] MEDS ORDERED: AZIT250T3 PO (14:10)
--- NOTE | 2019-10-01 15:17 | NUR ---
PATIENT STATED THAT FAMILY WILL PICK HIM AT 1630.
--- NOTE | 2019-10-01 15:38 | NUR ---
GIVEN DISCHARGE INSTRUCTIONS. EXPLAINED THAT PATIENT HAS SCHEDULED APPT AT [facility] AT 9AM ON September. EXPLAINED THAT THE DOCTOR PRESCRIBED ANTIBIOTICS THAT HE NEEDS TO PLANT MECHANIC AT PREFERRED PHARMACY. EXPLAINED THAT IF SYMPTOMS GET WORSE, CALL 911 OR GO TO EMERGENCY. WASH HANDS OFTEN. COVER MOUTH WHEN SNEEZING AND COUGHING. PATIENT VERBALIZED UNDERSTANDING. NO FURTHER QUESTIONS ASK. PATIENT SIGNED DISCHARGE PAPERWORK. TONY MELCHOR #[id number] WAS UTILIZED AUTOMOTIVE BUYER
--- NOTE | 2019-10-01 15:58 | NUR ---
DISCONTINUED IV. MINIMAL BLEEDING. COVERED WITH 2X2 AND TAPE. REMOVED ID BAND.
[2019-10-01 16:00] VITALS: BP 139/72
--- NOTE | 2019-10-01 16:31 | NUR ---
DR. CARROLL COULD NOT FIND THE [facility] THE PATIENT GOES TO. EXPLAINED TO THE PATIENT THAT HE CAN GO TO HIS [facility] AND ASK THE PHARMACIST TO LOOK UP FOR HIS MEDS OR SHOW THE DISCHARGE PAPER WITH MEDICATION TO THE PHARMACIST. PATIENT VERBALIZED UNDERSTANDING. MERCED WILLAMS, HELPED TRANSLATE
--- NOTE | 2019-10-01 16:40 | NUR ---
DISCHARGED PATIENT ON FOOT. PATIENT IS IN STABLE CONDITION. REMINDED PATIENT ABOUT HIS APPT WITH [facility] AND TO HAND HEEL SEAT FITTER HIS MEDICATIONS. PATIENT VERBALIZED UNDERSTANDING.
[2019-10-02 00:03] LABS: SPECIMENTYPE,BODY FLUID PLEURAL
[2019-10-02 00:04] LABS: APPEARANCE,SPUN,BODY FLUID CLEAR (CLEAR); APPEARANCE,UNSPUN,BODY FLUID HAZY (CLEAR); COLOR,BODY FLUID YELLOW (LT YELLOW); TOTAL VOLUME,BODY FLUID 150 mL
[2019-10-02 02:08] LABS: POLYNUCLEAR, BODY FLUID 89 %; RBC, BODY FLUID 1000 /cu. mm.; WBC, BODY FLUID 50 /cu. mm.
[2019-10-02 02:52] LABS: GLUCOSE,BODY FLUID 33 mg/dL
== END 2019-10-01 16:40 | disposition home or self-care (01) | DRG 137 ==
LOC: MED 05:20 → MTU 08:19
PROVIDERS: ADMIT General Practice; ATTEND General Practice
PROC: 0W993ZZ Drainage of Right Pleural Cavity, Percutaneous Approach (ICD-10-PCS; principal; 2019-10-01)
DX: J69.0 Pneumonitis due to inhalation of food and vomit (principal); J90 Pleural effusion, not elsewhere classified; K76.0 Fatty (change of) liver, not elsewhere classified; R65.10 Systemic inflammatory response syndrome (SIRS) of non-infectious origin without acute organ dysfunction; K29.20 Alcoholic gastritis without bleeding; K76.89 Other specified diseases of liver; F17.210 Nicotine dependence, cigarettes, uncomplicated; K52.9 Noninfective gastroenteritis and colitis, unspecified; K21.9 Gastro-esophageal reflux disease without esophagitis; J98.11 Atelectasis; M54.9 Dorsalgia, unspecified; D18.00 Hemangioma unspecified site; F10.10 Alcohol abuse, uncomplicated; Z88.0 Allergy status to penicillin; Z71.41 Alcohol abuse counseling and surveillance of alcoholic
CPT/HCPCS: 36415; 71045; 71250; 76604; 76700; 76942; 80048; 80053; 80305; 81003; 82150; 82945; 83036; 83605; 83690; 83735; 83880; 84100; 84134; 84157; 84439; 84443; 84484; 85025; 85610; 85730; 87040; 87070; 87075; 87081; 87086; 87205; 88305; 89051; 93005; 94640; 94664; 96361; 96374; 96375; 99291; C9113; G0480; G0482; J0456; J0696; J1885; J1956; J2001; J2270; J2405; J2543; J3475; J3480; J7030; J7042; J7060; Q0092; Q9967

== ENCOUNTER 2019-10-06 10:23 | Inpatient (IN) | payer MEDICAID, SELFPAY ==
[~2019-10-06] VITALS: Ht 154.9 cm; Wt 65.8 kg
[~2019-10-06 10:23] MED LIST: AMOX-999 PO; AZIT250T3 PO; FAMO-90 PO; LACT-81 PO
[2019-10-06 10:24] VITALS: BP 126/77
--- NOTE | 2019-10-06 10:24 | NUR ---
PT AMBULATED TO ER BED 8
--- NOTE | 2019-10-06 10:24 | NUR ---
COVID 19 HOSPITAL POLICY FOLLOWED. PT GIVEN MASK BEFORE ENTERING ER. RN FULL PPE WORN AT ALL TIMES. PT PLACED IN ISOLATION ROOM. COVID SIGN PLACED OUTSIDE ROOM. CHECK-IN COVID LIST ON FRONT DOOR.
--- NOTE | 2019-10-06 10:24 | NUR ---
ERMD AT BEDSIDE
--- NOTE | 2019-10-06 10:24 | NUR ---
34 Y/O M C/C SOB X 1 DAY, REFERRED FROM PCP TO COME TO ER. PER PT WAS AT [facility] ON THE 6TH OF THIS MONTH. PT EVALUATED FOR PNA ON LAST ER VISIT. PER PT WAS DRAINED FLUIDS FROM LUNGS, GIVEN ABX TO TAKE HOME. PT FINISHED PART OF ABX RX PRESCRIBED, UNABLE TO FINISH ABX DUE TO WORSENING SOB. PT 97% RA, NO FEVER 98.3F. ALLERGIES PNC. HX ASTHMA. NO RX. NO N/V/D. SIDE RAIL X1
--- NOTE | 2019-10-06 10:35 | NUR ---
XRAY AT BEDSIDE
--- NOTE | 2019-10-06 10:39 | NUR ---
Dr. Ron evaluating pt at bedside
[2019-10-06 11:03] LABS: BASOPHILS # (AUTO) 0.1 K/uL (0.00-0.22); BASOPHILS % (AUTO) 0.9 % (0.0-2.0); EOSINOPHILS % (AUTO) 0.5 % (0.0-4.0); HEMATOCRIT 35.2 % (36-52); HEMOGLOBIN 11.4 g/dL (12.0-18.0); LYMPHOCYTES # (AUTO) 0.7 K/uL (2.0-11.5); LYMPHOCYTES % (AUTO) 8.2 % (20.5-51.1); MEAN CORPUSCULAR HEMOGLOBIN 24 pg (27-31); MEAN CORPUSCULAR HGB CONC 32 g/dL (33-37); MEAN CORPUSCULAR VOLUME 72.6 fL (80-94); MONOCYTES # (AUTO) 0.6 K/uL (0.8-1.0); MONOCYTES % (AUTO) 6.6 % (1.7-9.3); NEUTROPHILS # (AUTO) 7.2 K/uL (1.8-7.7); NEUTROPHILS % (AUTO) 83.8 % (42.2-75.2); PLATELET COUNT (AUTO) 460 K/uL (140-450); RED BLOOD CELL COUNT(AUTO) 4.85 MIL/uL (4.20-6.10); RED CELL DISTRIBUTION WIDTH 14.1 % (11.6-13.7); WHITE BLOOD COUNT (AUTO) 8.6 K/uL (4.8-10.8)
--- NOTE | 2019-10-06 11:17 | NUR ---
FLU SWAB TAKEN TO LAB COVID SWAB WITH CDC PAPER TAKEN TO LAB
--- NOTE | 2019-10-06 11:26 | NUR ---
URINE COLLECTED. EKG OBTEINED AT BEDSIDE. PT PLACED ON 2L NC. RESPIRATIONS ARE EVEN AND UNLABORED. PT RESTING COMFORTABLY IN BED. SIDE RAILS X1.
[2019-10-06 11:41] LABS: ALBUMIN 2.8 g/dL (3.4-5.0); ANION GAP 14.8 (8-16); CARBON DIOXIDE 26.9 mmol/L (21-32); CREATININE 0.9 mg/dL (0.6-1.3); POTASSIUM 3.7 mmol/L (3.5-5.1); TOTAL BILIRUBIN 0.4 mg/dL (0.0-1.0)
[2019-10-06] MEDS ORDERED: AZITHROMYCIN 500 MG in DEXTROSE 5% 250 ML IV ONE (12:00)
[2019-10-06 12:02] LABS: APPEARANCE,URINE CLEAR (CLEAR); BILIRUBIN,URINE NEGATIVE (NEGATIVE); BLOOD, URINE TRACE-I (NEGATIVE); COLOR,URINE AMBER (YELLOW); LEUKOCYTE ESTERASE ,URINE NEGATIVE (NEGATIVE); NITRITE, URINE NEGATIVE (NEGATIVE); PH,URINE 5.5 (5.0-9.0); UGLUCOSE NEGATIVE (NEGATIVE)
[2019-10-06] MEDS ORDERED: HYDROcodone/APAP 7.5/325 MG 1 TAB PO PRN (12:15)
[2019-10-06] MEDS ORDERED: ONDANSETRON 4 MG/2 ML VIAL IM/IVP PRN (12:15)
[2019-10-06] MEDS ORDERED: guaiFENesin DM 200/20 MG-10 ML 10 ML UDC PO PRN (12:15)
[2019-10-06] MEDS ORDERED: ZOLPIDEM 5 MG TAB PO PRN (12:15)
[2019-10-06] MEDS ORDERED: DOCUSATE SODIUM 100 MG GELCAP PO PRN (12:15)
[2019-10-06] MEDS ORDERED: ACETAMINOPHEN 325 MG TAB PO PRN (12:15)
[2019-10-06] MEDS ORDERED: AZITHROMYCIN 500 MG INJ VIAL IV ONE (12:36)
[2019-10-06 12:47] LABS: RBC,URINE 0-5 /HPF (0-5); WBC,URINE 0-5 /HPF (0-5)
[2019-10-06 13:07] LABS: PROTHROMBIN TIME 11.3 secs (10.8-13.4)
[2019-10-06 13:16] LABS: CHOL/HDL RATIO 6.5 (1-4.5); FREE T4 (FREE THYROXINE) 1.3 ng/dL (0.76-1.46); MAGNESIUM 2.2 mg/dL (1.8-2.4); PHOSPHORUS 3.3 mg/dL (2.5-4.9); THYROID STIMULATING HORMONE 1.67 uIU/mL (0.34-3.74)
[2019-10-06 13:40] LABS: BARBITURATE, URINE NEGATIVE ng/ml (NEG <=200); BENZODIAZEPINE, URINE NEGATIVE ng/mL (NEG <=200); CANNABINOID, URINE NEGATIVE ng/mL (NEG <=50); COCAINE, URINE NEGATIVE ng/mL (NEG <=300); OPIATE, URINE NEGATIVE ng/mL (NEG <=2000); PHENCYCLIDINE SCREEN,URINE NEGATIVE ng/mL (NEG <=25)
[2019-10-06] MEDS ORDERED: ALBUTEROL SULFATE/IPRATROPIU 3 ML SOL IH PRN (13:40)
[2019-10-06] MEDS ORDERED: ALBUTEROL HFA MDI 90 MCG/ACTUATION 8 GM INH PRN (13:45)
[2019-10-06] MEDS ORDERED: ZINC SULF 220 MG CAP PO SCH (14:00)
[2019-10-06] MEDS ORDERED: ASCORBIC ACID 500 MG TAB PO SCH (14:00)
[2019-10-06] MEDS ORDERED: HYDROXYCHLOROQUINE 200 MG TAB PO SCH ×2 (14:00→22:00)
--- NOTE | 2019-10-06 14:08 | NUR ---
RECEIVED REPORT FROM ALIYA HENRY NURSE. PATIENT ARRIVED FROM ER UNIT VIA W/C. PATIENT ALERT, AWAKE, ORIENTED X4. INTRODUCED SELF. ORIENTED TO ROOM AND STAFF. PATIENT WITH O2 ON @ 2L VIA NC. NO DISTRESS NOTED. RIGHT AC INTACT AND PATENT. PLANS OF CARE DISCUSSED. PATIENT ON ISOLATION FOR POSSIBLE COVID. VS STABLE. SKIN ASSESSMENT DONE.
--- NOTE | 2019-10-06 14:13 | NUR ---
Patient will be admitted to care of [facility]. Admited to TELE. Will go to room 112. Belongings list completed. Report to SHAISTA BURGOS.
[2019-10-06 14:45] VITALS: BP 117/75
[2019-10-06] MEDS: NACL 0.9% 1,000 ML IV SCH (14:51)
--- NOTE | 2019-10-06 17:00 | NUR ---
PATIENT REMAINS IN STABLE CONDITION. NO DISTRESS NOTED. AAOX4.
--- NOTE | 2019-10-06 18:55 | NUR ---
PATIENT IN STABLE CONDITION. WILL ENDORSE TO ANKLE PATCH MOLDER FOR CONTINUITY OF CARE.
[2019-10-06] MEDS ORDERED: ALBUTEROL SULFATE/IPRATROPIU 3 ML SOL IH SCH (19:00)
--- NOTE | 2019-10-06 19:07 | NUR ---
RECEIVED PT AAOX4 , NID - O2 SAT WNL - ON O2 AT 2LPM/NC . DENIES ANY PAIN AT THIS TIME . IV SITE INTACT AND PATENT . SAFETY MEASURES IN PLACE - CALL LIGHT WITHIN REACH . POC DISCUSSED AND VERBALIZE UNDERSTANDING . WILL CONT. TO MONITOR . RULE OUT COVID19 - ON ISOLATION.
[2019-10-06 20:00] VITALS: BP 100/60
[2019-10-07] VITALS: BP 100/62
--- NOTE | 2019-10-07 | NUR ---
MADE ROUNDS , NO S/S OF ACUTE DISTRESS NOTED AT THIS TIME. WILL CONT. TO MONITOR. CALL LIGHT WITHIN REACH.
[2019-10-07 04:00] VITALS: BP 122/65
--- NOTE | 2019-10-07 04:00 | NUR ---
MADE ROUNDS . NO S/S OF ACUTE DISTRESS NOTED AT THIS TIME. WILL CONT. TO MONITOR.
[2019-10-07] MEDS: NACL 0.9% 1,000 ML IV SCH ×2 (05:46→22:11)
[2019-10-07 06:19] LABS: BASOPHILS # (AUTO) 0.1 K/uL (0.00-0.22); BASOPHILS % (AUTO) 0.7 % (0.0-2.0); EOSINOPHILS # (AUTO) 0.1 K/uL (0-0.4); HEMATOCRIT 33.3 % (36-52); HEMOGLOBIN 10.7 g/dL (12.0-18.0); LYMPHOCYTES % (AUTO) 14.1 % (20.5-51.1); MEAN CORPUSCULAR HEMOGLOBIN 24 pg (27-31); MEAN CORPUSCULAR HGB CONC 32 g/dL (33-37); MEAN CORPUSCULAR VOLUME 73.4 fL (80-94); MONOCYTES # (AUTO) 0.9 K/uL (0.8-1.0); MONOCYTES % (AUTO) 11.9 % (1.7-9.3); NEUTROPHILS # (AUTO) 5.1 K/uL (1.8-7.7); NEUTROPHILS % (AUTO) 71.3 % (42.2-75.2); PLATELET COUNT (AUTO) 431 K/uL (140-450); RED BLOOD CELL COUNT(AUTO) 4.54 MIL/uL (4.20-6.10); RED CELL DISTRIBUTION WIDTH 14.1 % (11.6-13.7); WHITE BLOOD COUNT (AUTO) 7.2 K/uL (4.8-10.8)
[2019-10-07 07:25] LABS: ANION GAP 12.4 (8-16); CARBON DIOXIDE 27.8 mmol/L (21-32); CREATININE 0.9 mg/dL (0.6-1.3); POTASSIUM 4.2 mmol/L (3.5-5.1)
--- NOTE | 2019-10-07 07:25 | NUR ---
RECEIVED PATIENT REPORT FROM RESIDENTIAL PROGRAM WORKER NURSE AT BEDSIDE FOR CONTINUITY OF CARE. PATIENT AWAKE AND ALERT, TAMAZIGHT SPEAKING. R AC 22G IV SITE INTACT, ASYMPTOMATIC, INFUSING IVF WELL. PATIENT DENIES PAIN. C/O PHLEGM AND INTERMITTENT DRY COUGH. ON 2L O2 VIA NC, RESPIRATIONS EVEN AND UNLABORED. DENIES PAIN. UPDATED BOARD. UPDATED PATIENT WITH PLAN OF CARE. HE VERBALIZED UNDERSTANDING. PT ON DROPLET PRECAUTIONS TO R/O COVID. CALL LIGHT WITHIN REACH, WILL CONTINUE TO MONITOR PATIENT.
[2019-10-07 08:00] VITALS: BP 100/60
[2019-10-07 08:21] LABS: T4 (THYROXINE) 9.4 ug/dL (4.5-12.0)
[2019-10-07] MEDS: HYDROXYCHLOROQUINE 200 MG TAB PO SCH (08:52)
[2019-10-07] MEDS: ASCORBIC ACID 500 MG TAB PO SCH (08:52)
[2019-10-07] MEDS: ZINC SULF 220 MG CAP PO SCH (08:52)
--- NOTE | 2019-10-07 08:52 | NUR ---
ORDERED MEDICATIONS GIVEN. PATIENT TOLERATED THEM WELL. PT ON AND OFF NC, STATES WHEN RELAXED, DOES NOT NEEDED, BUT WHEN SPEAKING, FEELS SOB. EDUCATED HIM ABOUT NEED FOR NC, HE VERBALIZED UNDERSTANDING ABOUT WEANING. DENIES PAIN. HAS NO COMPLAINTS AT THIS TIME. DROPLET PRECAUTIONS IN PLACE, CALL LIGHT WITHIN REACH, WILL CONTINUE TO MONITOR PATIENT.
[2019-10-07 12:30] VITALS: BP 107/69
--- NOTE | 2019-10-07 12:44 | NUR ---
VS WNL. PATIENT O2 SATURATION 95% ON RA. PT C/O [email or web address], PRN TYLENOL GIVEN. ORDERED ANTIBIOTIC GIVEN. PATIENT TOLERATING IT WELL. ALL NEEDS CURRENTLY MED. PATIENT HAS NO COMPLAINTS AT THIS TIME. DROPLET PRECAUTION IN PLACE, CALL LIGHT WITHIN REACH, WILL CONTINUE TO MONITOR PATIENT.
[2019-10-07] MEDS ORDERED: AZITHROMYCIN 250 MG in DEXTROSE 5% 250 ML IV SCH (13:00)
[2019-10-07] MEDS ORDERED: AZITHROMYCIN 500 MG in DEXTROSE 5% 250 ML IV SCH (13:00)
--- NOTE | 2019-10-07 13:51 | NUR ---
ORDERED ANTIBIOTIC GIVEN. PATIENT TOLERATING IT WELL. PATIENT HAD QUESTIONS ABOUT PLAN OF CARE, QUESTIONS ANSWERED. PATIENT AWARE OF PENDING COVID RESULTS. PATIENT O2 SATURATION 94% ON ROOM AIR, DENIES CHEST PAIN OR SOB, STATES SOME SOB WHEN SPEAKING FOR A LENGTHY TIME. CURRENTLY FEELING WELL, NO MORE HEADACHE, NO NAUSEA. ALL NEEDS MET AT THIS TIME. DROPLET PRECAUTIONS IN PLACE, CALL LIGHT WITHIN REACH, WILL CONTINUE TO MONITOR PATIENT.
[2019-10-07 16:10] VITALS: BP 102/56
[2019-10-07] MEDS: FERROUS SULFATE 325 MG TABEC PO SCH (17:32)
--- NOTE | 2019-10-07 17:35 | NUR ---
ORDERED MEDICATION GIVEN TO PATIENT. PATIENT TOLERATED IT WELL. PT IN BED COMFORTABLY WATCHING TV. NO S/S OF SOB OR DISTRESS NOTED ON ROOM AIR. PT DENIES PAIN. DROPLET PRECAUTIONS IN PLACE, CALL LIGHT WITHIN REACH, WILL CONTINUE TO MONITOR PATIENT.
--- NOTE | 2019-10-07 19:05 | NUR ---
REPORT GIVEN TO FIXED INTEREST DEALER NURSE AT BEDSIDE FOR CONTINUITY OF CARE. PATIENT IN STABLE CONDITION.
--- NOTE | 2019-10-07 19:06 | NUR ---
RECEIVED BEDSIDE REPORT FROM DAY SHIFT NURSEJANET FOR CONTINUITY OF CARE. IV SITE ON RAC 22G INTACT, PATENT, AND ASYMPTOMATIC. PATIENT DENIES PAIN. ON 2L O2 VIA NC, RESPIRATIONS EVEN AND UNLABORED. DENIES PAIN. UPDATED BOARD. UPDATED PATIENT WITH PLAN OF CARE. HE VERBALIZED UNDERSTANDING. PT ON DROPLET PRECAUTIONS TO R/O COVID19. CALL LIGHT WITHIN REACH, WILL CONTINUE TO MONITOR PATIENT.
[2019-10-07 20:00] VITALS: BP 105/48
--- NOTE | 2019-10-07 20:30 | NUR ---
PT RESTING IN BED, WATCHING TV. NO ACUTE DISTRESS NOTED.
[2019-10-08] VITALS: BP 93/53
--- NOTE | 2019-10-08 | NUR ---
VS CHECKED, WITHIN PT'S BASELINE. WILL CONTINUE TO MONITOR.
[2019-10-08 04:00] VITALS: BP 90/54
--- NOTE | 2019-10-08 04:01 | NUR ---
VS CHECKED, WITHIN PT'S BASELINE. WILL CONTINUE TO MONITOR.
--- NOTE | 2019-10-08 06:50 | NUR ---
PT IN STABLE CONDITION. WILL ENDORSE PT TO DAY SHIFT NURSE FOR CONTINUOUS CARE.
[2019-10-08 06:57] LABS: ANION GAP 13.4 (8-16); CARBON DIOXIDE 27.8 mmol/L (21-32); CREATININE 0.9 mg/dL (0.6-1.3); POTASSIUM 4.2 mmol/L (3.5-5.1)
[2019-10-08 07:06] LABS: BASOPHILS # (AUTO) 0.1 K/uL (0.00-0.22); BASOPHILS % (AUTO) 0.9 % (0.0-2.0); EOSINOPHILS # (AUTO) 0.1 K/uL (0-0.4); EOSINOPHILS % (AUTO) 1.9 % (0.0-4.0); HEMATOCRIT 33.1 % (36-52); HEMOGLOBIN 10.7 g/dL (12.0-18.0); LYMPHOCYTES # (AUTO) 1.3 K/uL (2.0-11.5); LYMPHOCYTES % (AUTO) 18.8 % (20.5-51.1); MEAN CORPUSCULAR HEMOGLOBIN 24 pg (27-31); MEAN CORPUSCULAR HGB CONC 32 g/dL (33-37); MEAN CORPUSCULAR VOLUME 73.2 fL (80-94); MONOCYTES # (AUTO) 0.7 K/uL (0.8-1.0); MONOCYTES % (AUTO) 9.4 % (1.7-9.3); NEUTROPHILS # (AUTO) 4.9 K/uL (1.8-7.7); PLATELET COUNT (AUTO) 470 K/uL (140-450); RED BLOOD CELL COUNT(AUTO) 4.53 MIL/uL (4.20-6.10); RED CELL DISTRIBUTION WIDTH 14.2 % (11.6-13.7); WHITE BLOOD COUNT (AUTO) 7.1 K/uL (4.8-10.8)
--- NOTE | 2019-10-08 07:10 | NUR ---
RECEIVED PT. FROM DISH WASHER NURSEBRANDON. PT. IS ASLEEP AND IN BED. PT. IS ON ROOM AIR WITH O2 STAT OF 95%. NO SIGNS OF DISTRESS NOTED. IV ON THE RIGHT AC 22G WITH NS RUNNING AT 60ML/HR. IV IS PATENT AND FLUSHES WELL. DROPLET PRECAUTION IN PLACE. REVIEWED PLAN OF CARE. CALL LIGHT WITHIN REACH. WILL CONTINUE TO MONITOR.
--- NOTE | 2019-10-08 07:45 | NUR ---
CT CALLED ABOUT CT CHEST W/OUT CONTRAST PROCEDURE, WILL PROCEED WITH PROCEDURE AFTER RESULT FOR COVID-19. WILL CONTINUE TO MONITOR.
[2019-10-08] MEDS: HYDROXYCHLOROQUINE 200 MG TAB PO SCH (08:32)
[2019-10-08] MEDS: ASCORBIC ACID 500 MG TAB PO SCH (08:32)
[2019-10-08] MEDS: ZINC SULF 220 MG CAP PO SCH (08:33)
[2019-10-08] MEDS: FERROUS SULFATE 325 MG TABEC PO SCH ×2 (08:34→16:15)
--- NOTE | 2019-10-08 08:59 | NUR ---
PATIENT HAS BEEN SCREENED AND CATEGORIZED MODERATE NUTRITION RISK. PATIENT WILL BE SEEN WITHIN 3-5 DAYS OF ADMISSION. 10/09/19 10/11/[address]
--- NOTE | 2019-10-08 10:00 | NUR ---
INFORMED BY CHARGE NURSE, BUDDY, THAT PT. IS NEGATIVE FOR COVID-19 TEST. WILL INITIATE STANDARD PRECAUTION.
--- NOTE | 2019-10-08 10:17 | NUR ---
PT. IS BACK FROM PROCEDURE OF CHEST CT W/OUT CONTRAST. DR. MASON IS BY THE BEDSIDE.
[2019-10-08 10:25] VITALS: BP 107/60
--- NOTE | 2019-10-08 11:14 | NUR ---
Late entry. Confirmed with RN that Zithromycin IV completed at 1350
[2019-10-08 12:00] VITALS: BP 99/62
--- NOTE | 2019-10-08 13:00 | NUR ---
AFTERNOON MEDICATIONS GIVEN. NO SIGNS OF DISTRESS NOTED. V/S TAKEN BP 99/62, HR 81, O2 STAT OF 95%, TEMP 98.2F, RR 18 AND PT. VERBALIZES NO PAIN. WILL CONTINUE TO MONITOR.
[2019-10-08] MEDS: AZITHROMYCIN 250 MG TAB PO SCH (13:57)
--- NOTE | 2019-10-08 14:50 | NUR ---
DC PLANNIN YRS OLD MALE PATIENT WAS ADMITTED FROM HOME WITH A DX OF PNEUMONIA R/O COVID. PT HAS A HX OF ETOH ABUSE. CXR INCREASED CONSOLIDATING OF THE RIGHT LUNG BASE SUSPICIOUS FOR PNEUMONIA. TESTED FOR COVID AND (-) FOR COVID STARTED ON IV ABX ROCEPHIN . CONSULT WITH PERIODICALS CLERK. SS EVALUATION FOR ETOH. DC PLAN TO GO HOME WHEN STABLE . CM TO FOLLOW Addendum: 10/09/19 at 1244 by Yani Hayden CM DC PLANNING:' SEEN BY DR OLIVARES AND ORDERED THE SECOND COVID19 TEST AFTER THE INITIAL CAME BACK NEGATIVE. CONTINUED IV ABX ROCEPHIN AND AZITHROMYCIN. DC PLAN AWAITING FOR THE COVID RESULT CM TO FOLLOW.
[2019-10-08 16:00] VITALS: BP 107/61
--- NOTE | 2019-10-08 16:00 | NUR ---
MEDICATIONS GIVEN. NO SIGNS OF DISTRESS NOTED. V/S TAKEN BP 107/61, HR 80, O2 STAT OF 97% IN RA, TEMP 98.7F, RR 16, AND PT. VERBALIZES NO PAIN. WILL CONTINUE TO MONITOR.
[2019-10-08] MEDS: NACL 0.9% 1,000 ML IV SCH (16:16)
--- NOTE | 2019-10-08 17:58 | NUR ---
DR. OLIVARES CALLED AND REQUESTS FOR NEW ORDER OF REPEAT COVID-[address] SANTAMARIA WITH THE NEW ORDER. WILL FOLLOW THROUGH.
--- NOTE | 2019-10-08 18:50 | NUR ---
COLLECTED COVID-19 TEST SWAB. NO SIGNS OF DISTRESS NOTED. WILL CONTINUE TO MONITOR.
--- NOTE | 2019-10-08 19:20 | NUR ---
ENDORSED PT. TO YEAST CULTURE OPERATOR NURSE, SILVIA, FOR CONTINUITY OF CARE.
--- NOTE | 2019-10-08 19:30 | NUR ---
RECEIVED BEDSIDE REPORT FROM DAY SHIFT NURSE. PATIENT IS AWAKE, ALERT, AND COOPERATIVE. RESPIRATION EVEN UNLABORED ON ROOM AIR. NO DISTRESS NOTED. SKIN IS WARM AND DRY. IV PATENT AND INTACT. PLAN OF CARE WAS DISCUSSED. MAINTAINED CONTACT AND DROPLET PRECAUTION. ALL SAFETY MEASURES IN PLACE. BED IS AT LOW POSITION. CALL LIGHT WITHIN REACH AND VERBALIZES ITS USE. WILL CONTINUE TO MONITOR.
[2019-10-08 20:00] VITALS: BP 110/62
--- NOTE | 2019-10-08 20:15 | NUR ---
INITIAL ASSESSMENT DONE. VITALS WERE TAKEN. PATIENT IN STABLE CONDITION. NO DISTRESS NOTED. WILL CONTINUE TO MONITOR.
--- NOTE | 2019-10-08 21:30 | NUR ---
PATIENT ASKED FOR WATER. WATER PROVIDED. CALL LIGHT WITHIN REACH. WILL CONTINUE TO MONITOR.
--- NOTE | 2019-10-08 23:45 | NUR ---
VITALS WERE TAKEN. PATIENT IN STABLE CONDITION. NO DISTRESS NOTED. WILL CONTINUE TO MONITOR.
[2019-10-09] VITALS: BP 99/57
--- NOTE | 2019-10-09 02:16 | NUR ---
CHECKED PATIENT. PATIENT SLEEPING RESPIRATION EVEN UNLABORED ON ROOM AIR. NO DISTRESS NOTED. WILL CONTINUE TO MONITOR.
[2019-10-09 04:00] VITALS: BP 100/52
--- NOTE | 2019-10-09 04:20 | NUR ---
VITALS WERE TAKEN. PATIENT IN STABLE CONDITION. NO DISTRESS NOTED. WILL CONTINUE TO MONITOR.
[2019-10-09] MEDS: NACL 0.9% 1,000 ML IV SCH ×2 (06:53→23:33)
--- NOTE | 2019-10-09 07:11 | NUR ---
ENDORSED PATIENT TO DAY SHIFT NURSE. PATIENT IN STABLE CONDITION.
[2019-10-09 07:18] LABS: ANION GAP 14.7 (8-16); BASOPHILS # (AUTO) 0.1 K/uL (0.00-0.22); BASOPHILS % (AUTO) 0.9 % (0.0-2.0); CARBON DIOXIDE 25.7 mmol/L (21-32); CREATININE 0.9 mg/dL (0.6-1.3); EOSINOPHILS # (AUTO) 0.2 K/uL (0-0.4); EOSINOPHILS % (AUTO) 2.2 % (0.0-4.0); HEMATOCRIT 33.2 % (36-52); HEMOGLOBIN 10.9 g/dL (12.0-18.0); LYMPHOCYTES # (AUTO) 1.3 K/uL (2.0-11.5); LYMPHOCYTES % (AUTO) 17.6 % (20.5-51.1); MEAN CORPUSCULAR HEMOGLOBIN 24 pg (27-31); MEAN CORPUSCULAR HGB CONC 33 g/dL (33-37); MONOCYTES # (AUTO) 0.7 K/uL (0.8-1.0); NEUTROPHILS # (AUTO) 5.2 K/uL (1.8-7.7); NEUTROPHILS % (AUTO) 70.3 % (42.2-75.2); PLATELET COUNT (AUTO) 487 K/uL (140-450); POTASSIUM 4.4 mmol/L (3.5-5.1); RED BLOOD CELL COUNT(AUTO) 4.55 MIL/uL (4.20-6.10); WHITE BLOOD COUNT (AUTO) 7.3 K/uL (4.8-10.8)
[2019-10-09 07:26] LABS: MAGNESIUM 2.2 mg/dL (1.8-2.4)
[2019-10-09 08:00] VITALS: BP 100/56
[2019-10-09] MEDS: ASCORBIC ACID 500 MG TAB PO SCH (08:09)
[2019-10-09] MEDS: FERROUS SULFATE 325 MG TABEC PO SCH ×2 (08:09→17:45)
[2019-10-09] MEDS: HYDROXYCHLOROQUINE 200 MG TAB PO SCH (08:09)
[2019-10-09] MEDS: ZINC SULF 220 MG CAP PO SCH (08:10)
--- NOTE | 2019-10-09 08:10 | NUR ---
CHECKED VITAL SIGNS AND DELIVERED BREAKFAST TRAY. ADMINISTERED AM SCHEDULED MEDS, MEDS EDUCATION PROVIDED AND PT VERBALIZED UNDERSTANDING. PT IS GETTING READY TO EAT BREAKFAST. DENIED PAIN, SOB AND DIZZINESS. NO SIGNS OF DISTRESS NOTED. ALL NEEDS MET. SAFETY MEASURES IN PLACE. BED IN LOW POSITION AND CALL LIGHT WITHIN REACH. INSTRUCTED PT TO USE THE CALL LIGHT FOR ANY ASSISTANCE AND PT AWARE.
--- NOTE | 2019-10-09 11:43 | NUR ---
IV PUMP SOUNDS OFF. WENT IN AND ASSESSED IV SITE, PATENT AND INTACT, CONTINUE INFUSING NS AT 60 ML/HR. PT AWAKE AND RESTING ON BED AT THIS TIME. DENIED PAIN, SOB AND DIZZINESS. NO SIGNS OF DISTRESS NOTED. TELE MONITOR ATTACHED. SAFETY MEASURES IN PLACE. INSTRUCTED PT TO USE THE CALL LIGHT OR TELEPHONE FOR ANY ASSISTANCE AND PT AWARE.
[2019-10-09 12:00] VITALS: BP 105/60
--- NOTE | 2019-10-09 12:32 | NUR ---
PROVIDED LUNCH TRAY AND CHECKED VITAL SIGNS. PT REQUESTED FOR ICE WATER AND ICE, PROVIDED. PT IS GETTING READY TO EAT HIS LUNCH. DENIED PAIN, SOB, AND DIZZINESS. NO SIGNS OF DISTRESS NOTED. TELE MONITOR ATTACHED. SAFETY MEASURES IN PLACE. INSTRUCTED PT TO USE THE CALL LIGHT FOR ANY ASSISTANCE AND PT AWARE.
--- NOTE | 2019-10-09 13:40 | NUR ---
Manager Decision Support Note: Basic Screen: Yes High Risk DC Screen Mcnary: AILEEN Hope Relationship: FAMILY Pre-Admission Living Arrangements: Lives with Other Prior ADL Independent Discipline: Case Mgt/Social Svcs Tentative Discharge Plan/Destination: No Needs Identified Tentative Discharge Plan Summary: Patient is a 34-year-old male admitted for pneumonia and COVID-19 rule out. SW was unable to meet with patient face to face due to COVID-19. Patient is currently being tested for COVID-19 for a second time. SW reviewed H&P and consulted with attending physician. No needs identified. SW will be available as needed. Signature: KANG Kendall Date: Oct 09, 2019 Time: 13:19
[2019-10-09] MEDS: AZITHROMYCIN 250 MG TAB PO SCH (13:52)
--- NOTE | 2019-10-09 14:01 | NUR ---
ADMINISTERED MEDS PER MD ORDER, MEDS EDUCATION PROVIDED AND PT SAID OK. PT AWAKE AND LOOKING AT HIS PHONE AT THIS TIME. DENIED PAIN, SOB AND DIZZINESS. NO SIGNS OF DISTRESS NOTED. TELE MONITOR ATTACHED. SAFETY MEASURES IN PLACE. BED IN LOW POSITION AND CALL LIGHT WITHIN REACH. INSTRUCTED PT TO USE THE CALL LIGHT OR TELEPHONE FOR ANY ASSISTANCE AND PT AWARE.
[2019-10-09 16:00] VITALS: BP 110/59
--- NOTE | 2019-10-09 17:55 | NUR ---
CHECKED VITAL SIGNS AND PROVIDED DINNER TRAY. ADMINISTERED MED PER MD ORDER, MED EDUCATION PROVIDED AND PT SAID OK. PT IS LOOKING AT HIS PHONE AT THIS TIME. NO SIGNS OF DISTRESS NOTED. TELE MONITOR ATTACHED. SAFETY MEASURES IN PLACE.
--- NOTE | 2019-10-09 18:12 | NUR ---
RECEIVED A CRITICAL FROM LAB FOR COVID-19, NEGATIVE. DR MASON MADE AWARE AND NO ORDER RECEIVED AT THIS TIME.
--- NOTE | 2019-10-09 19:14 | NUR ---
ENDORSED PT AT BEDSIDE TO SCHOOL CAFETERIA COOK NURSE FOR CONTINUITY OF CARE. PT IS IN STABLE CONDITION.
--- NOTE | 2019-10-09 19:30 | NUR ---
RECEIVED BEDSIDE REPORT FROM DAY SHIFT NURSE. PATIENT IS AWAKE, ALERT, AND COOPERATIVE. RESPIRATION EVEN UNLABORED ON ROOM AIR. NO DISTRESS NOTED. SKIN IS WARM AND DRY. IV PATENT AND INTACT. PLAN OF CARE WAS DISCUSSED. ALL SAFETY MEASURES IN PLACE. BED IS AT LOW POSITION. CALL LIGHT WITHIN REACH AND VERBALIZES ITS USE. WILL CONTINUE TO MONITOR.
[2019-10-09 20:00] VITALS: BP 124/61
--- NOTE | 2019-10-09 20:05 | NUR ---
INITIAL ASSESSMENT DONE. VITALS WERE TAKEN. PATIENT IN STABLE CONDITION. NO DISTRESS NOTED. WILL CONTINUE TO MONITOR.
--- NOTE | 2019-10-09 20:45 | NUR ---
PATIENT ACCIDENTALLY PULLED HIS IV. NO ACTIVE BLEEDING SEEN. CANNULA TIP INTACT. INSERTED 22 G LEFT FOREARM PATIENT TOLERATED IT WELL. WILL CONTINUE TO MONITOR.
--- NOTE | 2019-10-09 22:30 | NUR ---
CHECKED PATIENT. PATIENT SLEEPING RESPIRATION EVEN UNLABORED ON ROOM AIR. NO DISTRESS NOTED. WILL CONTINUE TO MONITOR.
[2019-10-10] VITALS: BP 99/50
--- NOTE | 2019-10-10 | NUR ---
VITALS WERE TAKEN. PATIENT IN STABLE CONDITION. NO DISTRESS NOTED. WILL CONTINUE TO MONITOR.
--- NOTE | 2019-10-10 02:15 | NUR ---
CHECKED PATIENT. PATIENT SLEEPING RESPIRATION EVEN UNLABORED ON ROOM AIR. NO DISTRESS NOTED. WILL CONTINUE TO MONITOR.
[2019-10-10 04:00] VITALS: BP 106/60
[2019-10-10] MEDS: NACL 0.9% 1,000 ML IV SCH (04:18)
--- NOTE | 2019-10-10 04:20 | NUR ---
VITALS WERE TAKEN. PATIENT IN STABLE CONDITION. NO DISTRESS NOTED. WILL CONTINUE TO MONITOR.
[2019-10-10 07:21] LABS: BASOPHILS # (AUTO) 0.1 K/uL (0.00-0.22); BASOPHILS % (AUTO) 0.8 % (0.0-2.0); EOSINOPHILS # (AUTO) 0.2 K/uL (0-0.4); EOSINOPHILS % (AUTO) 2.7 % (0.0-4.0); HEMOGLOBIN 11.1 g/dL (12.0-18.0); LYMPHOCYTES # (AUTO) 1.5 K/uL (2.0-11.5); LYMPHOCYTES % (AUTO) 22.1 % (20.5-51.1); MEAN CORPUSCULAR HEMOGLOBIN 24 pg (27-31); MEAN CORPUSCULAR HGB CONC 33 g/dL (33-37); MEAN CORPUSCULAR VOLUME 72.3 fL (80-94); MONOCYTES # (AUTO) 0.6 K/uL (0.8-1.0); MONOCYTES % (AUTO) 8.3 % (1.7-9.3); NEUTROPHILS # (AUTO) 4.4 K/uL (1.8-7.7); NEUTROPHILS % (AUTO) 66.1 % (42.2-75.2); PLATELET COUNT (AUTO) 505 K/uL (140-450); RED BLOOD CELL COUNT(AUTO) 4.71 MIL/uL (4.20-6.10); RED CELL DISTRIBUTION WIDTH 14.1 % (11.6-13.7); WHITE BLOOD COUNT (AUTO) 6.6 K/uL (4.8-10.8)
--- NOTE | 2019-10-10 07:22 | NUR ---
ENDORSED PATIENT TO DAY SHIFT NURSE. PATIENT IN STABLE CONDITION.
--- NOTE | 2019-10-10 07:23 | NUR ---
RECEIVED ENDORSEMENT FROM MOSS BLEACHER NURSE. PATIENT IS AOX4, [place] SPEAKING. NO C/O PAIN, NO SOB RESPIRATION EVEN UNLABORED. ON ROOM AIR. IV INTACT AND PATENT ON LFA 22G RUNNING ON NS, INFUSING WELL. PLAN OF CARE REVIEWED. PT VERBALIZED UNDERSTANDING. ALL SAFETY MEASURES IN PLACE. BED IS AT LOW POSITION. CALL LIGHT WITHIN REACH. WILL CONTINUE TO MONITOR
[2019-10-10 07:37] LABS: CREATININE 0.9 mg/dL (0.6-1.3)
[2019-10-10 07:38] LABS: MAGNESIUM 2.3 mg/dL (1.8-2.4); PHOSPHORUS 4.1 mg/dL (2.5-4.9)
--- NOTE | 2019-10-10 07:45 | NUR ---
NO TX NEEDED AT THIS TIME. PT IS IN NO DISTRESS AND ON RA SPO2 97% HR 72
[2019-10-10 08:00] VITALS: BP 109/64
[2019-10-10] MEDS: FERROUS SULFATE 325 MG TABEC PO SCH (08:23)
[2019-10-10] MEDS: HYDROXYCHLOROQUINE 200 MG TAB PO SCH (08:23)
[2019-10-10] MEDS: ZINC SULF 220 MG CAP PO SCH (08:24)
[2019-10-10] MEDS: ASCORBIC ACID 500 MG TAB PO SCH (08:24)
--- NOTE | 2019-10-10 08:45 | NUR ---
DUE MORNING MEDS GIVEN. TOLERATED WELL
--- NOTE | 2019-10-10 10:45 | NUR ---
SPUTUM SPECIMEN COLLECTED. PT IN BED. NO SOB, NO C/O PAIN, AFEBRILE
[2019-10-10 12:00] VITALS: BP 101/63
--- NOTE | 2019-10-10 12:45 | NUR ---
ENDORSED CARE TO DAY SHIFT NURSE DEBI FOR CONTINUITY OF CARE. IN STABLE CONDITION
[2019-10-10] MEDS ORDERED: ASCO1CAP75 PO (12:55)
[2019-10-10] MEDS ORDERED: LEVO750T2 PO (12:55)
[2019-10-10] MEDS ORDERED: ALBU0.0912 INH (12:55)
--- NOTE | 2019-10-10 12:55 | NUR ---
RECEIVED REPORT FROM NURSE WILLETT FOR CONTINUITY OF CARE.
[2019-10-10] MEDS: AZITHROMYCIN 250 MG TAB PO SCH (12:59)
--- NOTE | 2019-10-10 15:00 | NUR ---
DISCHARGE INSTRUCTION PROVIDED TO PT BY BRICK SHADER NEAL WITH ID NUMBER [id number]. AT BEDSIDE.EDUCATED PATIENT TO FOLLOW UP WITH MD AFTER D/C, MEDICATION REGIMENS, SIDE EFFECTS AND TO SEEK MEDICAL HELP IN CASE OF MEDICAL EMERGENCY. ANSWERS ALL PATIENTS QUESTIONS AND PT VERBALIZES UNDERSTANDING. REMOVED ALL ID BANDS AND IV.NO BLEEDING ON IV SITES. PT IS CHANGED INTO HIS OWN CLOTHES. RETURNED TEL MONITOR TO NETWORK PROJECT MANAGER. D/C PACKET PROVIDED PT TOOK ALL HIS BELONGINGS. ESCORTED PT TO THE FRONT LOBBY. PT IS STABLE CONDITION.
== END 2019-10-10 15:00 | disposition home or self-care (01) | DRG 139 ==
LOC: EEVIPCON 10:23 → MED 10:23 → MTU 13:08
PROVIDERS: ADMIT General Practice; ATTEND General Practice
DX: J18.9 Pneumonia, unspecified organism (principal); N17.0 Acute kidney failure with tubular necrosis; E43 Unspecified severe protein-calorie malnutrition; E87.1 Hypo-osmolality and hyponatremia; Z68.27 Body mass index [BMI] 27.0-27.9, adult; Z87.891 Personal history of nicotine dependence; Z88.0 Allergy status to penicillin; Z03.818 Encounter for observation for suspected exposure to other biological agents ruled out; J45.909 Unspecified asthma, uncomplicated; Z56.0 Unemployment, unspecified; D64.9 Anemia, unspecified; R09.02 Hypoxemia; E78.2 Mixed hyperlipidemia; J90 Pleural effusion, not elsewhere classified
CPT/HCPCS: 36415; 36600; 71045; 71250; 76604; 80048; 80053; 80305; 81001; 82150; 82803; 83036; 83605; 83690; 83735; 83880; 84100; 84436; 84439; 84443; 84479; 84484; 85025; 85610; 85730; 87040; 87070; 87081; 87086; 87205; 87804; 96365; 99291; J0456; J0696; J7030; J7060; Q0092

== ENCOUNTER 2020-09-02 13:20 | Emergency (ER) | payer MEDICAID, SELFPAY ==
[~2020-09-02] VITALS: Ht 170.2 cm; Wt 67.6 kg
[~2020-09-02 13:20] MED LIST changes: +ALBU0.0912 INH; -AMOX-999 PO; +ASCO1CAP75 PO; -AZIT250T3 PO; -FAMO-90 PO; -LACT-81 PO; +LEVO750T2 PO
[2020-09-02 13:27] VITALS: BP 155/66
[2020-09-02] MEDS ORDERED: cefTRIAXone 500 MG in LIDOCAINE MPF 1% 1 ML IM ONE (15:05)
[2020-09-02] MEDS ORDERED: cefTRIAXone 500 MG VIAL ONE (15:08)
[2020-09-02] MEDS ORDERED: LIDOCAINE MPF 1% 5 ML ONE (15:08)
[2020-09-02 15:22] LABS: APPEARANCE,URINE HAZY (CLEAR); BILIRUBIN,URINE NEGATIVE (NEGATIVE); BLOOD, URINE 2+ (NEGATIVE); COLOR,URINE YELLOW (YELLOW); LEUKOCYTE ESTERASE ,URINE 3+ (NEGATIVE); NITRITE, URINE NEGATIVE (NEGATIVE); UGLUCOSE NEGATIVE (NEGATIVE)
[2020-09-02] MEDS ORDERED: DOXY-487 PO (15:23)
[2020-09-02] MEDS ORDERED: MIRABULK PO (15:24)
[2020-09-02 15:49] LABS: RBC,URINE 11-20 (MOD) /HPF (0-5); WBC,URINE 20-60 /HPF (0-5)
[2020-09-02 16:16] VITALS: BP 127/71
== END 2020-09-02 16:16 | disposition home or self-care (01) ==
LOC: MED 13:20
DX: R30.0 Dysuria (principal); K59.00 Constipation, unspecified; J45.909 Unspecified asthma, uncomplicated; Z79.899 Other long term (current) drug therapy
CPT/HCPCS: 36415; 81001; 87086; 96372; 99283; J0696; J2001

== ENCOUNTER 2020-11-28 14:38 | Emergency (ER) | payer MEDICAID ==
[~2020-11-28] VITALS: Ht 172.7 cm; Wt 66.7 kg
[~2020-11-28 14:38] MED LIST changes: +DOXY-487 PO; +MIRABULK PO
[2020-11-28 14:42] VITALS: BP 120/74
[2020-11-28] MEDS ORDERED: PHEN-1593 PO (16:14)
[2020-11-28] MEDS ORDERED: IBUP-2213 PO (16:14)
[2020-11-28] MEDS ORDERED: SULF-59 PO (16:14)
[2020-11-28 16:37] VITALS: BP 120/74
== END 2020-11-28 16:40 | disposition home or self-care (01) ==
LOC: MED 14:38
DX: N39.0 Urinary tract infection, site not specified (principal); J45.909 Unspecified asthma, uncomplicated
CPT/HCPCS: 36415; 81002; 87491; 99283

== ENCOUNTER 2022-09-07 12:10 | Emergency (ER) | payer SELFPAY ==
[~2022-09-07] VITALS: Ht 170.2 cm; Wt 65.4 kg
[~2022-09-07 12:10] MED LIST changes: +IBUP-2213 PO; +PHEN-1593 PO; +SULF-59 PO
[2022-09-07 12:56] VITALS: BP_SYST 116; BP_SYST 63; BP_DIAS 63
[2022-09-07] MEDS ORDERED: IBUPROFEN 600 MG TAB PO ONE (13:25)
[2022-09-07 13:27] LABS: APPEARANCE,URINE CLEAR (CLEAR); BILIRUBIN,URINE NEGATIVE (NEGATIVE); BLOOD, URINE 1+ (NEGATIVE); COLOR,URINE YELLOW (YELLOW); LEUKOCYTE ESTERASE ,URINE 2+ (NEGATIVE); NITRITE, URINE NEGATIVE (NEGATIVE); PH,URINE 6.5 (5.0-9.0); UGLUCOSE NEGATIVE (NEGATIVE)
[2022-09-07 13:54] LABS: RBC,URINE NONE SEEN /HPF (0-5); WBC,URINE 20-60 /HPF (0-5)
--- NOTE | 2022-09-07 14:03 | NUR ---
BIB FAMILY C/O BURNING URINATION X 3 DAYS. PMH: ASTHMA
[2022-09-07] MEDS ORDERED: PYR100 PO (14:10)
[2022-09-07] MEDS ORDERED: CIPR500T4 PO (14:10)
[2022-09-07] MEDS ORDERED: IBUP-2213 PO (14:10)
--- NOTE | 2022-09-07 14:24 | NUR ---
Patient discharged with v/s stable. Written and verbal after care instructions given and explained. Patient alert, oriented and verbalized understanding of instructions. Ambulatory with steady gait. All questions addressed prior to discharge. ID band removed. Patient advised to follow up with PMD. Rx of PYEIDIUM, CIPRO& IBUPROFEN given. Patient educated on indication of medication including possible reaction and side effects. Opportunity to ask questions provided and answered.
[2022-09-07 14:25] VITALS: BP 114/65
== END 2022-09-07 14:24 | disposition home or self-care (01) ==
LOC: MED 12:10
DX: N39.0 Urinary tract infection, site not specified (principal); J45.909 Unspecified asthma, uncomplicated; Z79.899 Other long term (current) drug therapy
CPT/HCPCS: 81001; 87086; 99283

== ENCOUNTER 2022-09-22 16:40 | Emergency (ER) | payer MEDICAID ==
[~2022-09-22] VITALS: Ht 172.7 cm; Wt 66.7 kg
[~2022-09-22 16:40] MED LIST changes: +CIPR500T4 PO; +PYR100 PO
[2022-09-22 16:45] VITALS: BP 114/66
--- NOTE | 2022-09-22 16:47 | NUR ---
37/M WALKED IN C/O DYSURIA AND HEMATURIA X 1 DAY. PT REPORTS BEING DX UTI 09/12/22. PMH: DENIES
[2022-09-22 18:17] LABS: APPEARANCE,URINE CLEAR (CLEAR); BILIRUBIN,URINE NEGATIVE (NEGATIVE); BLOOD, URINE TRACE-I (NEGATIVE); COLOR,URINE YELLOW (YELLOW); LEUKOCYTE ESTERASE ,URINE 3+ (NEGATIVE); NITRITE, URINE NEGATIVE (NEGATIVE); PH,URINE 6.5 (5.0-9.0); UGLUCOSE NEGATIVE (NEGATIVE)
[2022-09-22 18:39] LABS: WBC,URINE 16-25 (MOD) /HPF (0-5)
[2022-09-22] MEDS ORDERED: PHEN-1877 PO (19:25)
[2022-09-22] MEDS ORDERED: CIPR500T4 PO (19:25)
[2022-09-22] MEDS ORDERED: IBUP-2213 PO (19:25)
[2022-09-22 19:37] VITALS: BP 114/66
--- NOTE | 2022-09-22 19:37 | NUR ---
Patient discharged with v/s stable. Written and verbal after care instructions given and explained. Patient alert, oriented and verbalized understanding of instructions. Ambulatory with steady gait. All questions addressed prior to discharge. ID band removed. Patient advised to follow up with PMD. Rx of CIPRO, MOTRIN, PYRIDIUM given. Patient educated on indication of medication including possible reaction and side effects. Opportunity to ask questions provided and answered.
== END 2022-09-22 19:37 | disposition home or self-care (01) ==
LOC: MED 16:40
DX: N39.0 Urinary tract infection, site not specified (principal); J45.909 Unspecified asthma, uncomplicated; Z79.899 Other long term (current) drug therapy; Z79.1 Long term (current) use of non-steroidal anti-inflammatories (NSAID); Z79.2 Long term (current) use of antibiotics
CPT/HCPCS: 81001; 87086; 87491; 99283

== ENCOUNTER 2022-10-07 08:43 | Emergency (ER) | payer MEDICAID ==
[~2022-10-07] VITALS: Ht 170.2 cm; Wt 65.8 kg
[~2022-10-07 08:43] MED LIST changes: +PHEN-1877 PO
[2022-10-07 09:04] VITALS: BP 132/77
--- NOTE | 2022-10-07 09:07 | NUR ---
37/M WALKED IN C/O DYSURIA AND PENILE PAIN. PT WAS SEEN RECENTLY FOR SAME S/SX AND WAS DX UTI WITH PX ATBX. PT REPORTS PAIN NOT GETTING BETTER. DENIES DISCHARGE OR HEMATURIA. URINE COLLECTED PMH: UTI
[2022-10-07 09:35] LABS: BILIRUBIN,URINE NEGATIVE (NEGATIVE); BLOOD, URINE 3+ (NEGATIVE); LEUKOCYTE ESTERASE ,URINE 3+ (NEGATIVE); NITRITE, URINE POSITIVE (NEGATIVE); PH,URINE 6.5 (5.0-9.0); UGLUCOSE NEGATIVE (NEGATIVE)
[2022-10-07 10:16] LABS: APPEARANCE,URINE HAZY (CLEAR); COLOR,URINE SLIGHT BLOODY (YELLOW)
[2022-10-07 10:51] LABS: RBC,URINE 11-20 (MOD) /HPF (0-5)
[2022-10-07] MEDS ORDERED: CEPH-588 PO (11:05)
[2022-10-07 11:15] VITALS: BP 127/78
== END 2022-10-07 11:15 | disposition home or self-care (01) ==
LOC: MED 08:43
DX: N39.0 Urinary tract infection, site not specified (principal); J45.909 Unspecified asthma, uncomplicated; Z79.899 Other long term (current) drug therapy; Z79.2 Long term (current) use of antibiotics; Z79.1 Long term (current) use of non-steroidal anti-inflammatories (NSAID)
CPT/HCPCS: 81001; 87086; 99283

== ENCOUNTER 2022-10-17 11:35 | Emergency (ER) | payer MEDICAID ==
[~2022-10-17] VITALS: Ht 172.7 cm; Wt 66.7 kg
[~2022-10-17 11:35] MED LIST changes: +CEPH-588 PO
[2022-10-17 11:40] VITALS: BP 126/60
--- NOTE | 2022-10-17 11:51 | NUR ---
AMBULATED TO BED 6
--- NOTE | 2022-10-17 12:06 | NUR ---
PT C/O DYSURIA FREQUENCY X2 WEEKS ON ANTIBIOTICS WITHOUT ANY RELIEF.
[2022-10-17 13:55] LABS: APPEARANCE,URINE CLEAR (CLEAR); BILIRUBIN,URINE NEGATIVE (NEGATIVE); BLOOD, URINE 2+ (NEGATIVE); COLOR,URINE YELLOW (YELLOW); LEUKOCYTE ESTERASE ,URINE 3+ (NEGATIVE); NITRITE, URINE NEGATIVE (NEGATIVE); UGLUCOSE NEGATIVE (NEGATIVE)
[2022-10-17 14:17] LABS: RBC,URINE >20 (MANY) /HPF (0-5); TRICHOMONAS,URINE None Seen /HPF (None Seen); WBC,URINE >25 (MANY) /HPF (0-5); YEAST,URINE None Seen /HPF (None Seen)
[2022-10-17] MEDS ORDERED: NITR100C7 PO (14:40)
[2022-10-17] MEDS ORDERED: PHEN-1877 PO (14:40)
--- NOTE | 2022-10-17 14:57 | NUR ---
Patient discharged with v/s stable. Written and verbal after care instructions given and explained. Patient alert, oriented and verbalized understanding of instructions. Ambulatory with steady gait. All questions addressed prior to discharge. ID band removed. Patient advised to follow up with PMD. Rx of MACROBID, PYRIDIUM given. Patient educated on indication of medication including possible reaction and side effects. Opportunity to ask questions provided and answered.
== END 2022-10-17 14:57 | disposition home or self-care (01) ==
LOC: MED 11:35
DX: N39.0 Urinary tract infection, site not specified (principal); J45.909 Unspecified asthma, uncomplicated; Z79.899 Other long term (current) drug therapy; Z79.2 Long term (current) use of antibiotics; Z79.1 Long term (current) use of non-steroidal anti-inflammatories (NSAID)
CPT/HCPCS: 81001; 87086; 99283

== ENCOUNTER 2022-10-28 10:02 | Emergency (ER) | payer MEDICAID ==
[~2022-10-28] VITALS: Ht 172.7 cm; Wt 77.1 kg
[~2022-10-28 10:02] MED LIST changes: +NITR100C7 PO
[2022-10-28 10:12] VITALS: BP 126/80
[2022-10-28 10:56] LABS: BILIRUBIN,URINE NEGATIVE (NEGATIVE); BLOOD, URINE 1+ (NEGATIVE); COLOR,URINE ORANGE (YELLOW); LEUKOCYTE ESTERASE ,URINE 3+ (NEGATIVE); NITRITE, URINE POSITIVE (NEGATIVE); PH,URINE 6.5 (5.0-9.0); UGLUCOSE NEGATIVE (NEGATIVE)
[2022-10-28 10:59] LABS: APPEARANCE,URINE SLIGHTLY CLOUDY (CLEAR)
[2022-10-28] MEDS ORDERED: KETOROLAC 15 MG/ML VIAL IVP ONE (11:10)
[2022-10-28 11:30] LABS: RBC,URINE 0-5 /HPF (0-5)
[2022-10-28 12:25] LABS: BASOPHILS % (AUTO) 0.1 % (0.0-2.0); EOSINOPHILS # (AUTO) 0.3 K/uL (0-0.4); EOSINOPHILS % (AUTO) 2.1 % (0.0-4.0); HEMATOCRIT 39.1 % (36-52); HEMOGLOBIN 12.6 g/dL (12.0-18.0); LYMPHOCYTES # (AUTO) 0.7 K/uL (2.0-11.5); LYMPHOCYTES % (AUTO) 5.5 % (20.5-51.1); MEAN CORPUSCULAR HEMOGLOBIN 23 pg (27-31); MEAN CORPUSCULAR HGB CONC 32 g/dL (33-37); MONOCYTES # (AUTO) 0.5 K/uL (0.8-1.0); NEUTROPHILS % (AUTO) 88.3 % (42.2-75.2); PLATELET COUNT (AUTO) 233 K/uL (140-450); RED BLOOD CELL COUNT(AUTO) 5.51 MIL/uL (4.20-6.10); WHITE BLOOD COUNT (AUTO) 12.5 K/uL (4.8-10.8)
[2022-10-28 12:40] LABS: ALBUMIN 3.7 g/dL (3.4-5.0); ANION GAP 11.8 (8-16); CARBON DIOXIDE 27.7 mmol/L (21-32); CREATININE 0.9 mg/dL (0.6-1.3); POTASSIUM 3.5 mmol/L (3.5-5.1); TOTAL BILIRUBIN 0.5 mg/dL (0.0-1.0)
[2022-10-28] MEDS ORDERED: MIRABULK PO (14:12)
[2022-10-28] MEDS ORDERED: CIPR500T4 PO (14:12)
[2022-10-28 14:34] VITALS: BP 130/80
--- NOTE | 2022-10-28 14:36 | NUR ---
patient presents to er with recurrent uti, condition stable d/c home with instructions after care reviewed understood left ambulatory with steady gait.
== END 2022-10-28 14:34 | disposition home or self-care (01) ==
LOC: MED 10:02
DX: N30.01 Acute cystitis with hematuria (principal); K59.00 Constipation, unspecified; J45.909 Unspecified asthma, uncomplicated; Z79.899 Other long term (current) drug therapy; Z79.1 Long term (current) use of non-steroidal anti-inflammatories (NSAID); Z79.2 Long term (current) use of antibiotics
CPT/HCPCS: 36415; 74177; 80053; 81001; 83690; 85025; 87086; 96374; 99285; J1885; Q9967